=== PATIENT | female | born 1935 | race Caucasian/White ===

== ENCOUNTER 2016-11-18 06:17 | Inpatient (IN) | payer MEDICARE ==
[~2016-11-18 06:17] MED LIST: Buffered Lidocaine 1% SYR 3ML* 3 ML/SYR SYRINGE INTRADERM ONE; Dexamethasone IV* 4 MG/ML 1 ML (4 MG) IV SLOW PU ONE; Famotidine IV* 10 MG/ML 2 ML (20 mg) IV ONE
[2016-11-18] MEDS ORDERED: Famotidine IV* 10 MG/ML 2 ML (20 mg) ONE (06:41)
[2016-11-18] MEDS ORDERED: ceFAZolin 2 GM PREMIX (*) 2 GM/50 ML BAG IVPB ONE (06:41)
[2016-11-18] MEDS ORDERED: Dexamethasone IV* 4 MG/ML 1 ML (4 MG) ONE (06:41)
[2016-11-18] MEDS ORDERED: Lidocain 1% EPI 1:100,000 * 30 ML MDV ONE (06:58)
[2016-11-18] MEDS ORDERED: Bacitracin IV* 50,000 UNITS INJ ONE (06:59)
[2016-11-18] MEDS ORDERED: Thrombin 5,000 UNITS* 1 APPLIC KIT - topical use - TOPICAL ONE (06:59)
[2016-11-18] MEDS ORDERED: Bupivacaine 0.25% EPI 200,000* 30 ML SDV ONE (07:00)
[2016-11-18] MEDS ORDERED: Rocuronium* 10 MG/ML VIAL ONE (07:42)
[2016-11-18] MEDS ORDERED: Midazolam* 1 MG/ML 2 ML VIAL (2 MG) ONE (07:42)
[2016-11-18] MEDS ORDERED: Lidocaine 2% PF * 5 ML VIAL ONE (07:42)
[2016-11-18] MEDS ORDERED: Propofol* 10 MG/ML 20 ML BTL IV PUSH ONE (07:42)
[2016-11-18] MEDS ORDERED: fentaNYL* 50 MCG/ML 5 ML VIAL (250 MCG VIAL) ONE (07:42)
[2016-11-18] MEDS ORDERED: EPHEDrine (Pressors)* 50 MG/ML VIAL ONE (08:01)
[2016-11-18] MEDS ORDERED: Phenylephrine IV* 40 MCG/ML 10 ML SYRINGE ONE (08:27)
[2016-11-18] MEDS ORDERED: Phenylephrine INJ* 10 MG/ML 1 ML VIAL (10 MG) ONE (08:45)
[2016-11-18] MEDS ORDERED: PROCHLORPERAZINE INJ 5 MG/ML 2 ML VIAL IV PRN (08:53)
[2016-11-18] MEDS ORDERED: oxyCODONE/Acetamin 5/325 MG* TAB PO PRN (08:53)
[2016-11-18] MEDS ORDERED: Ondansetron INJ* 2 MG/ML VIAL ONE (09:45)
[2016-11-18] MEDS ORDERED: Magnesium Hydroxide LIQ* 30 ML UDC PO PRN (10:11)
[2016-11-18] MEDS ORDERED: Ondansetron INJ* 2 MG/ML VIAL IV PRN (10:11)
[2016-11-18] MEDS ORDERED: fentaNYL* 50 MCG/ML 2 ML VIAL (100 MCG VIAL) ONE ×2 (10:52→11:35)
[2016-11-18] MEDS: fentaNYL* 50 MCG/ML 2 ML VIAL (100 MCG VIAL) IV PRN ×3 (10:53→11:36)
[2016-11-18] MEDS ORDERED: HYDROmorphone PCA* 20 MG/20 ML PCA.SYRING PCA SCH (11:00)
--- NOTE | 2016-11-18 12:52 | RAD ---
INDICATION: Lumbar spine surgery COMPARISON: Preoperative radiograph dated October 13, 2016 TECHNIQUE: A single crosstable lateral view was taken intraoperatively. FINDINGS: Single crosstable view depicts 3 surgical clamps overlying the L4-S2 level. There is a surgical device with the tip at level with the superior endplate of S1. . IMPRESSION: Crosstable intraoperative findings as described above.
[2016-11-18] MEDS: Polyethylene Glycol 3350* 17 GM PACKET PO SCH (13:35)
[2016-11-18] MEDS: Omeprazole CAP* 20 MG PO SCH (20:19)
[2016-11-18] MEDS: celeCOXIB CAP* 200 MG PO SCH (20:19)
--- NOTE | 2016-11-19 07:49 | PN ---
Progress Note - Progress Note SOAP: Subjective: [This is an 81 year old female s/p decompressive lumbar laminectomy L2-3, L3-4, L4-5 and L5-S1, POD#1. She is feeling well this morning and complains of incisional back pain. No numbness, tingling, weakness or pain in the bilateral lower extremities. She has been up out of bed with assistance. She is eating and drinking without difficulty. ] Objective: [ Vital Signs: Temp Pulse Resp BP Pulse Ox 97.9 F 64 18 121/48 97 11/19/16 03:57 11/19/16 06:37 11/19/16 06:00 11/19/16 03:57 11/19/16 06:37 General: Alert and oriented. No distress Neuro: Motor and sensory intact. Extremities: Full ROM throughout PATRICIA drain output 11/18/16 11/18/16 11/18/16 10:33 11:45 13:49 Output, PATRICIA #1 40 60 75 11/18/16 11/18/16 11/18/16 18:21 20:21 22:55 Output, PATRICIA #1 100 25 25 11/19/16 11/19/16 11/19/16 00:47 02:05 05:23 Output, PATRICIA #1 20 10 15 ] Assessment: [This patient is making a satisfactory recovery at this time. PATRICIA drain continues to collect significant volume and will require further monitoring.] Plan: [1. Discontinue magaña catheter. 2. 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 3. Encourage ambulation. 4. Admit to inpatient for further monitoring.]
[2016-11-19] MEDS: BUPROPION PO SCH (08:51)
[2016-11-19] MEDS: Polyethylene Glycol 3350* 17 GM PACKET PO SCH (08:52)
[2016-11-19] MEDS: celeCOXIB CAP* 200 MG PO SCH ×2 (08:53→20:08)
[2016-11-19] MEDS: Cholecalciferol TAB* 1000 UNITS PO SCH (08:54)
[2016-11-19] MEDS: Multivitamins/Minerals TAB PO SCH (08:54)
[2016-11-19] MEDS: DULoxetine DR CAP* 60 MG CAP.DR PO SCH (08:54)
[2016-11-19] MEDS: Metoprolol Succinate XL TAB* 25 MG PO SCH (08:54)
[2016-11-19] MEDS: Omeprazole CAP* 20 MG PO SCH ×2 (08:54→20:08)
[2016-11-19] MEDS: HYDROmorphone TAB* 2 MG PO PRN ×3 (08:59→20:08)
[2016-11-19] MEDS ORDERED: Polyethylene Glycol 3350* 17 GM PACKET PO SCH (09:00)
[2016-11-19] MEDS: Carisoprodol TAB* 350 MG PO PRN ×2 (10:19→23:09)
[2016-11-19] MEDS: BUPROPION 300 MG PO SCH (11:59)
[2016-11-19] MEDS: BUPROPION 100 MG PO SCH (11:59)
[2016-11-19] MEDS ORDERED: HYDROmorphone INJ* 2 MG/ML CARPUJECT SYRINGE ONE (12:47)
[2016-11-19] MEDS: HYDROmorphone INJ* 2 MG/ML CARPUJECT SYRINGE IV SLOW PU PRN ×2 (17:41→22:03)
[2016-11-20] MEDS: HYDROmorphone TAB* 2 MG PO PRN ×4 (00:45→20:57)
[2016-11-20] MEDS: HYDROmorphone INJ* 2 MG/ML CARPUJECT SYRINGE IV SLOW PU PRN ×3 (04:02→15:02)
[2016-11-20] MEDS: BUPROPION 300 MG PO SCH (09:06)
[2016-11-20] MEDS: BUPROPION 100 MG PO SCH (09:07)
[2016-11-20] MEDS: Polyethylene Glycol 3350* 17 GM PACKET PO SCH (09:08)
[2016-11-20] MEDS: Cholecalciferol TAB* 1000 UNITS PO SCH (09:09)
[2016-11-20] MEDS: Omeprazole CAP* 20 MG PO SCH ×2 (09:09→20:57)
[2016-11-20] MEDS: Multivitamins/Minerals TAB PO SCH (09:09)
[2016-11-20] MEDS: Metoprolol Succinate XL TAB* 25 MG PO SCH (09:09)
[2016-11-20] MEDS: DULoxetine DR CAP* 60 MG CAP.DR PO SCH (09:09)
[2016-11-20] MEDS: celeCOXIB CAP* 200 MG PO SCH ×2 (09:09→20:57)
[2016-11-20] MEDS: BUPROPION PO SCH (09:12)
[2016-11-20] MEDS ORDERED: Calcium Carbonate CHEW TAB* 500 MG (TUMS) PO PRN (15:35)
[2016-11-20] MEDS ORDERED: fentaNYL PATCH 50 MCG/HR TRANSDERM SCH (16:00)
[2016-11-20] MEDS: fentaNYL Patch Check Q Shift 1 NOTE SCH (18:43)
[2016-11-21] MEDS: fentaNYL Patch Check Q Shift 1 NOTE SCH (06:45)
[2016-11-21] MEDS: HYDROmorphone TAB* 2 MG PO PRN (07:26)
[2016-11-21 07:32] VITALS: BP 130/56
--- NOTE | 2016-11-21 07:46 | PN ---
Progress Note - Progress Note SOAP: Subjective: []POD # 3 Much better Complains of incisional pain Has ambulated,voiding well Objective: []Neuro intact Dressing dry Assessment: [] Satis post op course Plan: [] D/C today D/C instructions given
[2016-11-21] MEDS: Cholecalciferol TAB* 1000 UNITS PO SCH (08:23)
[2016-11-21] MEDS: Multivitamins/Minerals TAB PO SCH (08:24)
[2016-11-21] MEDS: Metoprolol Succinate XL TAB* 25 MG PO SCH (08:24)
[2016-11-21] MEDS: Omeprazole CAP* 20 MG PO SCH (08:24)
[2016-11-21] MEDS: DULoxetine DR CAP* 60 MG CAP.DR PO SCH (08:24)
[2016-11-21] MEDS: celeCOXIB CAP* 200 MG PO SCH (08:24)
[2016-11-21] MEDS: BUPROPION 100 MG PO SCH (08:24)
[2016-11-21] MEDS: BUPROPION 300 MG PO SCH (08:24)
[2016-11-21] MEDS: BUPROPION PO SCH (08:25)
[2016-11-21] MEDS: Polyethylene Glycol 3350* 17 GM PACKET PO SCH (08:25)
--- NOTE | 2016-11-21 23:14 | OP ---
OPERATIVE REPORT: DATE OF OPERATION: 11/18/16 DATE OF : 33 SURGEON: Patel Huang MD OUTSIDE SALES ACCOUNT REPRESENTATIVE: WALESKA Wong ANESTHESIA: General. PRE-OP DIAGNOSIS: Lumbar spinal stenosis, L2-3, L3-4, L4-5, L5-S1. POST-OP DIAGNOSIS: Lumbar spinal stenosis, L2-3, L3-4, L4-5, L5-S1. OPERATIVE PROCEDURE: Decompressive lumbar laminectomy, L2-3, L3-4, L4-5, L5-S1. DESCRIPTION OF PROCEDURE: After satisfactory general anesthesia was obtained, the patient was place d on the operating table in the prone position with the chest supported on the Larry frame and the back slightly flexed. The lumbar region was then clipped, prepped and draped in a sterile manner for lumbar laminectomy and a skin incision was outlined from L2 to the sacrum. This incision was infilt rated with 1% Xylocaine with epinephrine after which it was turned down sharply to the level of the lumbar fascia. The fascia was divided along the spinous process from L2 to sacrum bilaterally and th e paraspinal musculature was stripped away using the monopolar cautery and periosteal elevator. An intraoperative x-ray was obtained verifying localization of the L4-5 level after which a decompressi on was initially began at this level by removing the spinous process of L4 and L5 with a combination of the Nadine flour distributor and Leksell rongeurs. The Midas Gutierrez drill was then used to thin out the remaining portion of the base of the spinous process of L4 and inferior aspect of the lamina. There was noted to be marked facet hypertrophy as well as ligamentum thickening contributing to stenosis at this level. Utilizing Kerrison rongeurs, a decompression was carried superiorly until the attach ment of the ligamentum flavum was taken down. Ligamentum flavum was then removed with the Kerrison. The medial aspect of the facet complex was thinned out and generous foraminotomy was carried out u ntil both L5 nerve roots could be seen to be free in their course. Attention was then directed to t he L3-4 level where similar changes were noted. The decompression at this level was carried inferio rly until both L4 nerve roots were noted to be free in their course. A decompression was done at L5 - S1 level where the findings were noted to be not as severe as the L3-4 or L4-5 levels, but there w as a component of facet hypertrophy contributing to nerve root compression particularly at the level of the S1 pedicles. At the conclusion of this decompression, the S1 nerve roots were noted to free in their course. The most significant level was at L2-L3 where the spinous processes of L2 and L3 were actually had grown together. This was decompressed as well with the findings again being signi ficant for bony hypertrophy and ligamentum thickening. At the conclusion of the decompression at th is level, both the L3 nerve roots were noted to be free. Hemostasis was obtained with temporary Gel foam and after assuring adequate hemostasis, the wound was thoroughly irrigated after which Gelfoam was placed in the bony defects at all 4 levels. A drain was placed in the epidural space and tunnel ed out toward the left side. The fascia was then reapproximated with 0 Vicryl suture. The subcutan eous tissue was closed with 3-0 Vicryl suture and the skin closed with skin clips. Estimated blood loss was 200 cc and the final sponge, padding, and needle counts were correct. The patient was take n to the recovery room extubated and in stable condition. [id number]/[facility] #: [id number]
--- NOTE | 2016-11-26 02:04 | DS ---
DISCHARGE SUMMARY: DATE OF ADMISSION: 11/18/16 DATE OF DISCHARGE: 11/21/16 DISCHARGE DIAGNOSES: 1. Lumbar spinal stenosis. 2. Hypertension. 3. Gastroesophageal reflux disease. 4. History of thrombosis. SPECIAL PROCEDURES: Decompressive lumbar laminectomy at L2-3, L3-4, and L4-5, and L5-S1. HOSPITAL COURSE: This 81-year-old female was seen in the office with signs and symptoms of lumbar s heydi stenosis that has been present for several years. She has failed to improve with conservative treatment and was admitted at this time for elective surgical intervention. On the day of admissio n, she was taken to surgery where under general anesthesia, a decompressive lumbar laminectomy at L2 -3, L3-4, L4-5, and L5-S1, operation was carried out. Postoperatively, she was feeling well. Pain w as managed with p.o. and IV pain medications. She is ambulating independently. She is eating and d rinking without difficulty. She required further observation for pain management in addition to con tinued wound drain output. The third postoperative day, she was discharged home to the care of her family. Discharge instructions including wound care and activity level were discussed with the linda ent and provided. She will be seen in the office in approximately 7 to 10 days for followup and sta ple removal. DISCHARGE MEDICATIONS: Dilaudid 2 mg 1 tab by mouth every 4 hours as needed for pain. WALESKA FERREIRA [id number]/[facility] #: [id number]
== END 2016-11-21 10:20 | disposition home or self-care (01) | DRG 516 ==
LOC: OR 06:17 → SSU 07:50 → OBSVTOIN 11-19 07:50
PROVIDERS: ADMIT Neurological Surgery; ATTEND Neurological Surgery
PROC: 01NB0ZZ Release Lumbar Nerve, Open Approach (ICD-10-PCS; principal; 2016-11-18 07:45)
DX: M48.06 Spinal stenosis, lumbar region (principal); F33.1 Major depressive disorder, recurrent, moderate; I10 Essential (primary) hypertension; K21.9 Gastro-esophageal reflux disease without esophagitis; M16.10 Unilateral primary osteoarthritis, unspecified hip; M19.019 Primary osteoarthritis, unspecified shoulder; M24.549 Contracture, unspecified hand; M47.812 Spondylosis without myelopathy or radiculopathy, cervical region; Z79.01 Long term (current) use of anticoagulants; Z79.891 Long term (current) use of opiate analgesic; Z79.899 Other long term (current) drug therapy; Z88.6 Allergy status to analgesic agent; Z88.8 Allergy status to other drugs, medicaments and biological substances; Z86.711 Personal history of pulmonary embolism; Z87.891 Personal history of nicotine dependence; Z83.3 Family history of diabetes mellitus; Z80.52 Family history of malignant neoplasm of bladder; Z82.49 Family history of ischemic heart disease and other diseases of the circulatory system; Z81.1 Family history of alcohol abuse and dependence
CPT/HCPCS: 72100; A9270-GY; G0378; J0690; J1100; J1170; J2250; J2405; J2704; J3010

== ENCOUNTER 2017-05-21 06:19 | Emergency (ER) | payer MEDICARE ==
[2017-05-21] MEDS ORDERED: HYDROmorphone* 1 MG/ML 1 ML SYR IV ONE (06:50)
[2017-05-21] MEDS ORDERED: Ondansetron INJ* 2 MG/ML VIAL IV ONE (06:50)
[2017-05-21] MEDS ORDERED: NS 0.9% 1000 ML* 1,000 ML IV ONE (06:50)
[2017-05-21 07:16] LABS: Hematocrit 41 % (35-47); Hemoglobin 13.1 g/dl (12.0-16.0); Mean Corpuscular HGB Conc 32 g/dl (31-36); Mean Corpuscular Hemoglobin 27 pg (27-31); Mean Corpuscular Volume 84 fL (80-97); Mean Platelet Volume 8 um3 (7.4-10.4); Red Blood Count 4.92 10^6/ul (4.0-5.4); Red Cell Distribution Width 18 % (10.5-15)
[2017-05-21 07:29] LABS: ALT 10 U/L (7-52); AST 16 U/L (13-39); Albumin 4.3 g/dL (3.2-5.2); Alkaline Phosphatase 53 U/L (34-104); Anion Gap 9 mmol/L (2-11); BUN/Creatinine Ratio 23.3 (8-20); Blood Urea Nitrogen 17 mg/dL (6-24); C Reactive Protein 1.95 mg/L (< 5.00); CO2 Carbon Dioxide 25 mmol/L (22-32); Chloride 102 mmol/L (101-111); EGFR African American 98.2 (>60); EGFR Non-African American 76.3 (>60); Glucose 124 mg/dL (70-100); Lipase < 10 U/L (11.0-82.0); Potassium 3.6 mmol/L (3.5-5.0); Sodium 136 mmol/L (133-145); Total Protein 7.3 g/dL (6.4-8.9)
[2017-05-21] MEDS ORDERED: PROCHLORPERAZINE INJ 5 MG/ML 2 ML VIAL IV ONE (07:34)
[2017-05-21 08:15] LABS: Urine Bilirubin Negative (Negative); Urine Glucose Negative (Negative); Urine Nitrite Negative (Negative)
[2017-05-21 10:20] VITALS: BP 130/64
--- NOTE | 2017-05-21 18:51 | ED ---
Nakita Avina Rebecca, scribed for Steven Garcia MD on 05/21/17 at 0734 . Headache - HPI Summary HPI Summary: Pt is an 81 y/o F who presents to ED c/o JENNINGS since approximately 1500 yesterday. JENNINGS is in the left frontal region and is currently severe, ranked 7-8/10 which is improved from how it was previously. Sx aggravated by movement and alleviated by nothing. Additionally c/o slight abd pain and N/V with vomiting beginning this morning. reports emesis was dark brown. Denies ear pain and sore throat. family notes she received 2 cortisone injections yesterday. Prior similar episodes of HAs last year, treated with IV Dilaudid and a less severe episode of JENNINGS without vomiting last week. Unknown last Head CT. - History Of Current Complaint Chief Complaint: EDHeadache Stated Complaint: HEADACHE/VOMITING//NAUSEA Time Seen by Provider: 05/21/17 07:21 Hx Obtained From: Patient Onset/Duration: Started hours ago - Last night, Still Present Initially Headache Was: Initial Pain Scale(0-10)= - 9/10, Severe Currently Pain Is: Current Pain Scale(0-10)= - 7-8/10, Severe Location of Headache: Frontal - Left Aggravating Factor: Other - Movement Allevating Factors: Nothing Associated Signs And Symptoms: Nausea, Vomiting, Other (Noted In Comments) - abd pain - Allergies/Home Medications Allergies/Adverse Reactions: Allergies Allergy/AdvReac Type Severity Reaction Status Date / Time Hydrochlorothiazide Allergy Rash Verified 05/21/17 06:39 Morphine AdvReac Severe SEVERE Verified 05/21/17 06:39 HEADACHE Codeine AdvReac Mild Dizziness Verified 05/21/17 06:39 Home Medications: Home Medications fentaNYL PATCH 12 MCG/HR * 12.5 mcg TRANSDERM Q72HR 05/21/17 [History Confirmed 05/21/17] PMH/Surg Hx/FS Hx/Imm Hx Endocrine/Hematology History: Denies: Hx Diabetes Cardiovascular History: Reports: Hx Hypertension - ON MEDS, Hx Rheumatic Fever - A CHILD, Other Cardiovascular Problems/Disorders - Hx HTN Denies: Hx Congestive Heart Failure, Hx Pacemaker/ICD, Hx Peripheral Vascular Disease Respiratory History: Reports: Hx Pulmonary Embolism - HX DVT, 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, Other Respiratory Problems/Disorders - PEs Jun 2013 Denies: Hx Asthma GI History: Reports: Hx Gastroesophageal Reflux Disease, Other GI Disorders - diarrhea History: Reports: Other Problems/Disorders - FREQ BLADDER INFECTIONS Denies: Hx Renal Disease Musculoskeletal History: Reports: Hx Arthritis - ALL OVER, Hx Back Problems, Hx Bursitis, Hx Osteoporosis, Other Musculoskeletal History - left hip replacement , right hip replacement Sensory History: Reports: Hx Cataracts - [place], Hx Contacts or Glasses - GLASSES, Hx Hearing Aid - [place] Denies: Hx Glaucoma Opthamlomology History: Reports: Hx Cataracts - [place], Hx Contacts or Glasses - GLASSES Denies: Hx Glaucoma Neurological History: Reports: Hx Headaches, Hx Migraine - 2016 A TEEN AND 2016 AND 12/2015, OK NOW, Hx Nerve Disease, Other Neuro Impairments/Disorders - sciatica. PAIN CLINIC PT Psychiatric History: Reports: Hx Anxiety - SEES THERAPY, Hx Depression - THERAPY Denies: Hx Attention Deficit Hyperactivity Disorder, Hx Eating Disorder, Hx Panic Disorder, Hx Post Traumatic Stress Disorder, Hx Inpatient Treatment, Hx Community Mental Health Tx, Hx Schizophrenia, Hx Bipolar Disorder, Hx Suicide Attempt, Hx of Violent Episodes Against Others, Hx Substance Abuse, Other Psychiatric Issues/Disorders - Cancer History Cancer Type, Location and Year: pre-cancerous skin lesions removed Hx Chemotherapy: No Hx Radiation Therapy: No - Surgical History Surgery Procedure, Year, and Place: TONSILS CHILD. AGE 19 APPENDECTOMY- [place]. 1997 BREAST REDUCTION- [place]. 1998 LEFT TOTAL HIP REPLACEMENT- [place]. 013 RIGHT TOTAL HIP REPLACEMENT. 1993, [place]Y, [place]. ROX[place] CARPAL TUNNEL, 2005. ROXANA CATARACTS, 2009, [place]. LEFT SHOULDER RELACEMENT, 2012, [place]. LEFT HAND, 2015, [place] 2003 BILAT CATARACTS- [place]. left shoulder replacement . 2003 RIGHT BUNION- [place]. 2005 BILAT CARPAL TUNNEL RELEASE-[place]. TRIGGER FINGER RELEASE LT HAND Hx Anesthesia Reactions: No - Immunization History Date of Tetanus Vaccine: up to date Date of Influenza Vaccine: up to date Infectious Disease History: No Infectious Disease History: Denies: Hx Clostridium Difficile, Hx Hepatitis, Hx Human Immunodeficiency Virus (HIV), Hx of Known/Suspected MRSA, Hx Shingles, Hx Tuberculosis, Hx Known/ Suspected VRE, Hx Known/Suspected VRSA, History Other Infectious Disease, Traveled Outside the [place] in Last 30 Days - Family History Known Family History: Positive: Hypertension, Other - bladder CA - Social History Alcohol Use: None Alcohol Amount: 3 glasses wine/day Substance Use Type: Reports: None Smoking Status (MU): Former Smoker Type: Cigarettes Amount Used/How Often: 2 PACKS A DAY Have You Smoked in the Last Year: No Review of Systems Negative: Sore Throat, Ear Ache Positive: Abdominal Pain - mild, Vomiting, Nausea Positive: Headache - L frontal All Other Systems Reviewed And Are Negative: Yes Physical Exam - Summary Physical Exam Summary: VITAL SIGNS: Reviewed. GENERAL: ~Patient is a well-developed and nourished female who is lying comfortable in the stretcher. ~Patient is not in any acute respiratory distress. HEAD AND FACE: No signs of trauma. ~No ecchymosis, hematomas or skull depressions. No sinus tenderness. EYES: PERRLA, EOMI x 2, No injected conjunctiva, no nystagmus. EARS: Hearing grossly intact. Ear canals and tympanic membranes are within normal limits. MOUTH: Oropharynx within normal limits. NECK: Supple, trachea is midline, no adenopathy, no JVD, no carotid bruit, no c- spine tenderness, neck with full ROM. CHEST: Symmetric, no tenderness at palpation LUNGS: Clear to auscultation bilaterally. No wheezing or crackles. CVS: Regular rate and rhythm, S1 and S2 present, no murmurs or gallops appreciated. ABDOMEN: Soft, non-tender. No signs of distention. No rebound no guarding, and no masses palpated. Bowel sounds are normal. EXTREMITIES: FROM in all major joints, no edema, no cyanosis or clubbing. NEURO: Alert and oriented x 3. No acute neurological deficits. Speech is normal and follows commands. SKIN: Dry and warm Triage Information Reviewed: Yes Vital Signs On Initial Exam: Initial Vitals Temp Pulse Resp BP Pulse Ox 97.3 F 75 18 191/75 97 05/21/17 06:29 05/21/17 06:29 05/21/17 06:29 05/21/17 06:29 05/21/17 06:29 Vital Signs Reviewed: Yes - Caryl Coma Scale Coma Scale Total: 15 Diagnostics - Vital Signs Vital Signs Temp Pulse Resp BP Pulse Ox 05/21/17 07:14 16 05/21/17 06:34 97.3 F 75 18 191/75 97 05/21/17 06:29 97.3 F 75 18 191/75 97 - Laboratory Lab Results: Lab Results 05/21/17 Range/Units 07:00 WBC 11.0 H (3.5-10.8) 10^3/ul RBC 4.92 (4.0-5.4) 10^6/ul Hgb 13.1 (12.0-16.0) g/dl Hct 41 (35-47) % MCV 84 (80-97) fL MCH 27 (27-31) pg MCHC 32 (31-36) g/dl RDW 18 H (10.5-15) % Plt Count 204 (150-450) 10^3/ul MPV 8 (7.4-10.4) um3 Neut % (Auto) 78.8 (38-83) % Lymph % (Auto) 15.1 L (25-47) % [place] % (Auto) 5.6 (1-9) % Eos % (Auto) 0 (0-6) % Baso % (Auto) 0.5 (0-2) % Absolute Neuts (auto) 8.6 H (1.5-7.7) 10^3/ul Absolute Lymphs (auto) 1.7 (1.0-4.8) 10^3/ul Absolute Monos (auto) 0.6 (0-0.8) 10^3/ul Absolute Eos (auto) 0 (0-0.6) 10^3/ul Absolute Basos (auto) 0.1 (0-0.2) 10^3/ul Absolute Nucleated RBC 0 10^3/ul Nucleated RBC % 0 Result Diagrams: 05/21/17 07:00 05/21/17 07:00 Lab Statement: Any lab studies that have been ordered have been reviewed, and results considered in the medical decision making process. Re-Evaluation - Re-Evaluation First Eval Re-Evaluation Time: 10:04 Change: Improved Comment: Pain is significantly better, now 0/10. Headache Course/Dx - Course Assessment/Plan: Pt is an 81 y/o F who presents to ED c/o JENNINGS since approximately 1500 yesterday. JENNINGS is in the left frontal region and is currently severe, ranked 7-8/10 which is improved from how it was previously. Sx aggravated by movement and alleviated by nothing. Additionally c/o slight abd pain and N/V with vomiting beginning this morning. reports emesis was dark brown. Denies ear pain and sore throat. family notes she received 2 cortisone injections yesterday. Prior similar episodes of HAs last year, treated with IV Dilaudid and a less severe episode of JENNINGS without vomiting last week. Unknown last Head CT. Test results w/o any significant abnormalities except WBC of 11.0, glucose of 124. UA negative for UTI. Before I saw the pt, the pt was given by Dr. Chairez IV fluids, Zofran and Dilaudid. By the time of examination, most of her sx had resolved. Pt reports that she suffers of migraine HAs and this JENNINGS is similar to usual migraine JENNINGS. She was observed for approx. 3 hours in the ED and all her sx resolved. At this point, the pain is 0/ 10. She requested to be D/C to home. I gave an Rx for Zofran and she will be D/ C to home with follow up with PCP. The pt is afebrile and has no neck pain and no photophobia, therefore the pt has low suspicion for meningitis. Pt is hemodynamically stable and A&Ox3. I discussed all the findings and test results with the patient. Patient was instructed to return to the emergency room immediately if any of the symptoms return or worsens. Plan of care was discussed with the patient and understands and agrees. All questions were answered at patient satisfaction. There were no further complaints or concerns. - Diagnoses Differential Diagnosis/HQI/PQRI: Migraine, Sinus Headache, Tension Headache Provider Diagnoses: Migraine headache Discharge - Discharge Plan Condition: Stable Disposition: HOME Prescriptions: Ondansetron ODT TAB* [Zofran 4 MG Odt TAB*] 4 mg PO Q6H PRN #10 tab.odt PRN Reason: Vomiting Patient Education Materials: Migraine Headache (ED) Referrals: Raymond Cooper MD [Primary Care Provider] - 3 Days The documentation as recorded by the Nakita singletary Rebecca accurately reflects the service I personally performed and the decisions made by me, Steven Garcia MD.
== END 2017-05-21 10:19 | disposition home or self-care (01) ==
LOC: ED 06:19
DX: G43.909 Migraine, unspecified, not intractable, without status migrainosus (principal); R11.2 Nausea with vomiting, unspecified; R10.9 Unspecified abdominal pain; Z87.891 Personal history of nicotine dependence
CPT/HCPCS: 36415; 80053; 81003; 83690; 85025; 85610; 85730; 86140; 96374; 96375; 99282; J0780; J1170; J2405

== ENCOUNTER 2018-03-19 13:29 | Emergency (ER) | payer MEDICARE ==
[2018-03-19 15:38] LABS: ABS Basophils 0 10^3/ul (0-0.2); ABS Eosinophils 0.1 10^3/ul (0-0.6); ABS Lymphocytes 1.7 10^3/ul (1.0-4.8); ABS Monocytes 0.7 10^3/ul (0-0.8); ABS Neutrophils 4.7 10^3/ul (1.5-7.7); ABS Nucleated RBC 0 10^3/ul; Hematocrit 44 % (35-47); Hemoglobin 14.8 g/dl (12.0-16.0); Mean Corpuscular HGB Conc 34 g/dl (31-36); Mean Corpuscular Hemoglobin 30 pg (27-31); Mean Corpuscular Volume 90 fL (80-97); Mean Platelet Volume 7.5 um3 (7.4-10.4); Nucleated Red Blood Cells % 0.1; Platelet Count 262 10^3/ul (150-450); Red Blood Count 4.89 10^6/ul (4.00-5.40); Red Cell Distribution Width 14 % (10.5-15); White Blood Count 7.2 10^3/ul (3.5-10.8)
[2018-03-19] MEDS ORDERED: Ketorolac INJ* 30 MG/ML 1 ML VIAL IV PUSH ONE (15:39)
[2018-03-19 16:04] LABS: EGFR Non-African American 60.6 (>60)
[2018-03-19] MEDS ORDERED: diPHENhydraMINE IV* 50 MG/ML 1 ml VIAL (BENADRYL) IV ONE (16:45)
--- NOTE | 2018-03-19 16:47 | RAD ---
INDICATION: Right upper quadrant pain. COMPARISON: Comparison is made with a prior CT of the abdomen and pelvis from May 09, 2014. TECHNIQUE: Multiple real-time images of the right upper quadrant were obtained. FINDINGS: The gallbladder appear normal. No gallbladder wall thickening or pericholecystic fluid is present. No intra or extrahepatic ductal distention is present. The common bile duct measured 0.2 cm in diameter. The liver is normal in size. There are several echogenic foci which correlate with calcifications on the prior CT study. No other focal abnormalities are seen. The pancreas is obscured by overlying bowel gas. The right kidney is normal in size without evidence for hydronephrosis. IMPRESSION: 1. NORMAL EXAMINATION OF THE GALLBLADDER. 2. SCATTERED CALCIFICATIONS WITHIN THE LIVER SUGGESTIVE OF OLD GRANULOMATOUS DISEASE.
--- NOTE | 2018-03-19 17:12 | RAD ---
INDICATION: Right upper quadrant pain. COMPARISON: Correlation is made with a prior chest x-ray study from November 11, 2016. TECHNIQUE: Dual-energy PA and lateral views of the chest were obtained. FINDINGS: The heart is within normal limits in size. Mediastinal and hilar contours appear within normal limits. There are calcified mediastinal and left hilar lymph nodes most consistent with old granulomatous disease. The lungs are hyperinflated and clear. No pleural effusion is seen. No free intraperitoneal air is seen. The patient is status post left shoulder arthroplasty. IMPRESSION: FINDINGS CONSISTENT WITH COPD AND OLD GRANULOMATOUS DISEASE, NO EVIDENCE FOR ACUTE FINDING.
--- NOTE | 2018-03-19 17:15 | RAD ---
INDICATION: Right upper quadrant pain. COMPARISON: Comparison is made with a prior CT of the abdomen and pelvis from May 09, 2014. TECHNIQUE: Frontal supine films of the abdomen were obtained. FINDINGS: The small bowel and colon appear nondistended. There are multiple round and oval shaped calcific densities which project over the right mid abdomen consistent with either pills or foreign bodies. The patient is status post total bilateral hip replacement surgeries. IMPRESSION: 1. NO EVIDENCE FOR OBSTRUCTION. 2. CALCIFIC DENSITIES WHICH PROJECT OVER THE RIGHT MIDABDOMEN CONSISTENT WITH FOREIGN BODIES OR PILLS.
--- NOTE | 2018-03-19 18:07 | ED ---
Go Avina Stephanie, scribed for Herve Medina MD on 03/19/18 at 1537 . Abdominal Pain/Female - HPI Summary HPI Summary: The pt is an 82 y/o F presenting to the ED with c/o RLQ abd pain that began this morning at 08:00. She denies fever, N/V/D, and CP. The pt states her pain started as a stabbing pain to her mid abdomen but has travelled to her R side. Per daughter, the pt has had a series of UTIs in the past. Her last BM was yesterday. - History of Current Complaint Chief Complaint: EDAbdPain Stated Complaint: PAIN IN ABDOMEN Time Seen by Provider: 03/19/18 15:25 Hx Obtained From: Patient ?: No Onset/Duration: Gradual Onset Timing: Intermittent Episode Lasting Severity Currently: Moderate Pain Intensity: 7 Pain Scale Used: 0-10 Numeric Location: Discrete At: RUQ, Discrete At: RLQ Radiates: No Aggravating Factor(s): Nothing Alleviating Factor(s): Nothing Associated Signs and Symptoms: Negative: Chest Pain, Nausea, Vomiting, Diarrhea Allergies/Adverse Reactions: Allergies Allergy/AdvReac Type Severity Reaction Status Date / Time hydrochlorothiazide Allergy Rash Verified 02/24/18 15:00 morphine AdvReac Severe Headache Verified 02/24/18 15:00 codeine AdvReac Mild Dizziness Verified 02/24/18 15:00 Home Medications: Home Medications Acetaminophen TAB* [Tylenol TAB*] 325 mg PO Q4H PRN 03/19/18 [History Confirmed 03/19/18] BuPROPion XL* [Bupropion XL*] 350 mg PO DAILY 03/19/18 [History Confirmed ] Calcium Carbonate [Antacid] 500 mg PO QID PRN 03/19/18 [History Confirmed ] Carboxymethylcellulose Sodium [Refresh Tears] 15 ml BOTH EYES DAILY PRN [History Confirmed 03/19/18] Carisoprodol TAB* [Soma TAB*] 350 mg PO Q6H PRN 03/19/18 [History Confirmed ] Cholecalciferol TAB* [Vitamin D TAB*] 2,000 units PO DAILY 03/19/18 [History Confirmed 03/19/18] DULoxetine DR CAP* [Cymbalta CAP*] 60 mg PO DAILY 03/19/18 [History Confirmed ] Hydrocortisone [Proctozone-Hc] 2.5 % TOPICAL DAILY PRN 03/19/18 [History Confirmed 03/19/18] Hydromorphone HCl [Hydromorphone ER] 32 mg PO DAILY 03/19/18 [History Confirmed 03/19/18] Multivitamins/Minerals TAB* [Theragran/minerals TAB*] 1 tab PO DAILY 03/19/18 [ History Confirmed 03/19/18] Omeprazole CAP* [Prilosec CAP* 20 MG] 20 mg PO DAILY 03/19/18 [History Confirmed 03/19/18] Polyethylene Glycol 3350* [Miralax*] 17 gm PO DAILY 03/19/18 [History Confirmed 03/19/18] Rivaroxaban TAB(*) [Xarelto 20 mg] 20 mg PO BEDTIME 03/19/18 [History Confirmed 03/19/18] Triazolam TAB* [Halcion TAB*] 0.25 mg PO BEDTIME PRN 03/19/18 [History Confirmed 03/19/18] celeCOXIB CAP* [Celebrex CAP*] 200 mg PO BID 03/19/18 [History Confirmed ] PMH/Surg Hx/FS Hx/Imm Hx Endocrine/Hematology History: Denies: Hx Diabetes Cardiovascular History: Reports: Hx Hypertension - ON MEDS, Hx Rheumatic Fever - A CHILD, Other Cardiovascular Problems/Disorders - Hx HTN Denies: Hx Congestive Heart Failure, Hx Pacemaker/ICD, Hx Peripheral Vascular Disease Respiratory History: Reports: Hx Pulmonary Embolism - HX DVT, 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, Other Respiratory Problems/Disorders - PEs Jun 2013 Denies: Hx Asthma GI History: Reports: Hx Gastroesophageal Reflux Disease, Other GI Disorders - diarrhea History: Reports: Other Problems/Disorders - FREQ BLADDER INFECTIONS Denies: Hx Renal Disease Musculoskeletal History: Reports: Hx Arthritis - ALL OVER, Hx Back Problems, Hx Bursitis, Hx Osteoporosis, Other Musculoskeletal History - left hip replacement , right hip replacement Sensory History: Reports: Hx Cataracts - [facility], Hx Contacts or Glasses - GLASSES, Hx Hearing Aid - [place] Denies: Hx Glaucoma Opthamlomology History: Reports: Hx Cataracts - [place], Hx Contacts or Glasses - GLASSES Denies: Hx Glaucoma Neurological History: Reports: Hx Headaches, Hx Migraine - 2016 A TEEN AND 2016 AND 12/2015, OK NOW, Hx Nerve Disease, Other Neuro Impairments/Disorders - sciatica. PAIN CLINIC PT Psychiatric History: Reports: Hx Anxiety - SEES THERAPY, Hx Depression - THERAPY Denies: Hx Attention Deficit Hyperactivity Disorder, Hx Eating Disorder, Hx Panic Disorder, Hx Post Traumatic Stress Disorder, Hx Inpatient Treatment, Hx Community Mental Health Tx, Hx Schizophrenia, Hx Bipolar Disorder, Hx Suicide Attempt, Hx of Violent Episodes Against Others, Hx Substance Abuse, Other Psychiatric Issues/Disorders - Cancer History Cancer Type, Location and Year: pre-cancerous skin lesions removed Hx Chemotherapy: No Hx Radiation Therapy: No - Surgical History Surgery Procedure, Year, and Place: TONSILS CHILD. AGE 19 APPEN[place]CTOMY- [place]. [place] [facility] [place] [facility] [place] RIGHT TOTAL HIP REPLACEMENT. 1993, [place], [place]. [place] CARPAL TUNNEL, 2005. [place] CATARACTS, [place] [facility] [place], [place] [facility] [place] [facility] [place] [facility] [place] replacement . 2003 RIGHT BUNION- [place] 2005 BILAT CARPAL [place] [place] TRIGGER FINGER RELEASE LT HAND Hx Anesthesia Reactions: No - Immunization History Date of Tetanus Vaccine: up to date Date of Influenza Vaccine: up to date Infectious Disease History: No Infectious Disease History: Denies: Hx Clostridium Difficile, Hx Hepatitis, Hx Human Immunodeficiency Virus (HIV), Hx of Known/Suspected MRSA, Hx Shingles, Hx Tuberculosis, Hx Known/ Suspected VRE, Hx Known/Suspected VRSA, History Other Infectious Disease, Traveled Outside the in Last 30 Days - Family History Known Family History: Positive: Hypertension, Other - bladder CA - Social History Occupation: Retired Lives: With Family Alcohol Use: None Alcohol Amount: 3 glasses wine/day Hx Substance Use: No Substance Use Type: Reports: None Hx Tobacco Use: Yes Smoking Status (MU): Former Smoker Type: Cigarettes Amount Used/How Often: 2 PACKS A DAY Have You Smoked in the Last Year: No Review of Systems Negative: Fever Negative: Chest Pain Positive: Abdominal Pain. Negative: Vomiting, Diarrhea, Nausea Negative: Slurred Speech All Other Systems Reviewed And Are Negative: Yes Physical Exam - Summary Physical Exam Summary: Appearance: Well appearing, no pain distress Skin: warm, dry, reflects adequate perfusion Head/face: normal Eyes: EOMI, SUSHIL ENT: normal Neck: supple, non-tender Respiratory: CTA, breath sounds present Cardiovascular: RRR, pulses symmetrical Abdomen: moderate RUQ pain and R side abd pain without Murpheys sign, soft Bowel Sounds: present Musculoskeletal: normal, strength/ROM intact Neuro: normal, sensory motor intact, A&Ox3 Triage Information Reviewed: Yes Vital Signs On Initial Exam: Initial Vitals Temp Pulse Resp BP Pulse Ox 98.1 F 78 17 178/102 100 03/19/18 13:33 03/19/18 13:33 03/19/18 13:33 03/19/18 13:33 03/19/18 13:33 Vital Signs Reviewed: Yes Diagnostics - Vital Signs Vital Signs Temp Pulse Resp BP Pulse Ox 03/19/18 13:33 98.1 F 78 17 178/102 100 - Laboratory Lab Results: Lab Results 03/19/18 03/19/18 03/19/18 Range/Units 15:25 15:25 15:25 WBC 7.2 (3.5-10.8) 10^3/ul RBC 4.89 (4.00-5.40) 10^6/ul Hgb 14.8 (12.0-16.0) g/dl Hct 44 (35-47) % MCV 90 (80-97) fL MCH 30 (27-31) pg MCHC 34 (31-36) g/dl RDW 14 (10.5-15) % Plt Count 262 (150-450) 10^3/ul MPV 7.5 (7.4-10.4) um3 Neut % (Auto) 65.5 (38-83) % Lymph % (Auto) 23.0 L (25-47) % [place] % (Auto) 9.9 H (0-7) % Eos % (Auto) 1.0 (0-6) % Baso % (Auto) 0.6 (0-2) % Absolute Neuts (auto) 4.7 (1.5-7.7) 10^3/ul Absolute Lymphs (auto) 1.7 (1.0-4.8) 10^3/ul Absolute Monos (auto) 0.7 (0-0.8) 10^3/ul Absolute Eos (auto) 0.1 (0-0.6) 10^3/ul Absolute Basos (auto) 0 (0-0.2) 10^3/ul Absolute Nucleated RBC 0 10^3/ul Nucleated RBC % 0.1 Sodium 139 (135-145) mmol/L Potassium 3.6 (3.5-5.0) mmol/L Chloride 103 (101-111) mmol/L Carbon Dioxide 25 (22-32) mmol/L Anion Gap 11 (2-11) mmol/L BUN 16 (6-24) mg/dL Creatinine 0.89 (0.51-0.95) mg/dL Est GFR ( Amer) 77.9 (>60) Est GFR (Non-Af Amer) 60.6 (>60) BUN/Creatinine Ratio 18.0 (8-20) Glucose 106 H (70-100) mg/dL Lactic Acid 1.0 (0.5-2.0) mmol/L Calcium 10.3 (8.6-10.3) mg/dL Total Bilirubin 0.40 (0.2-1.0) mg/dL AST 17 (13-39) U/L ALT 11 (7-52) U/L Alkaline Phosphatase 60 (34-104) U/L C-Reactive Protein 8.65 H (< 5.00) mg/L Total Protein 7.5 (6.4-8.9) g/dL Albumin 4.1 (3.2-5.2) g/dL Globulin 3.4 (2-4) g/dL Albumin/Globulin Ratio 1.2 (1-3) Lipase 17 (11.0-82.0) U/L Result Diagrams: 03/19/18 15:25 03/19/18 15:25 Lab Statement: Any lab studies that have been ordered have been reviewed, and results considered in the medical decision making process. 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 ED physician has reviewed this report. Abdomen XRay Xray Interpretation: No Acute Changes Radiology Interpretation Completed By: Radiologist - 1. NO EVIDENCE FOR OBSTRUCTION. 2. CALCIFIC DENSITIES WHICH PROJECT OVER THE RIGHT MIDABDOMEN CONSISTENT WITH FOREIGN BODIES OR PILLS. ED physician has reviewed this report. - EKG 14:47 Cardiac Rate: NL EKG Rhythm: Sinus Rhythm - [address] Segment: Normal EKG Interpretation: Baseline artifact, nml axis - Additional Comments Diagnostic Additional Comments: Gallbladder US reveals: 1. NORMAL EXAMINATION OF THE GALLBLADDER. 2. SCATTERED CALCIFICATIONS WITHIN THE LIVER SUGGESTIVE OF OLD GRANULOMATOUS DISEASE. Re-Evaluation - Re-Evaluation First Eval Re-Evaluation Time: 17:49 Change: Improved - The pt states her abd pain has resolved. Abdominal Pain Fem Course/Dx - Course Course Of Treatment: 82-year-old female on chronic opiates for spinal stenosis presents with abdominal pain mostly in the right side that is sharp and stabbing in nature. It is intermittent. Her pain was treated and improved here. Gallbladder ultrasound was negative. X-ray of the chest is negative. KUB shows significant constipation and metallic containing pill fragments in the right upper quadrant. This is likely from her multivitamin containing iron. She was given enema with more relief. She will be increased in her MiraLAX at home, no collects added and Levsin for cramping. She will follow up closely with her primary care physician. - Diagnoses Differential Diagnosis: Positive: Bowel Obstruction, Constipation, Diverticulitis, Gall Bladder Disease, Pancreatitis Provider Diagnoses: Right sided abdominal pain, Chronic constipation Discharge - Sign-Out/Discharge Documenting (check all that apply): Discharge/Admit/Transfer - Discharge - Discharge Plan Condition: Improved Disposition: HOME Prescriptions: Bisacodyl SUPP* [Dulcolax Supp*] 10 mg PO DAILY PRN #5 supp PRN Reason: Constipation Hyoscyamine Sulfate [Levsin/Sl] 0.125 mg SL QID PRN #20 sub PRN Reason: cramping Patient Education Materials: Constipation (ED), Acute Abdominal Pain (ED) Referrals: Raymond Cooper MD [Primary Care Provider] - Additional Instructions: Increase MiraLAX to 3 times daily until looser stools. Tylenol, low doses of ibuprofen or Benadryl may help cramping. Abdominal massage, exercises may help. Natural fruit juices such as prune juice or apple juice and high fiber diet may help. Return if fever, increased pain, worse or other concerns as discussed. If this doesn't work and constipation is an ongoing problem a medication called Relistor may be prescribed. - Billing Disposition and Condition Condition: IMPROVED Disposition: Home The documentation as recorded by the Go singletary Stephanie accurately reflects the service I personally performed and the decisions made by me, Herve Medina MD.
[2018-03-19 18:24] VITALS: BP 120/63
== END 2018-03-19 18:23 | disposition home or self-care (01) ==
LOC: ED 13:29 → MERGE 13:29 → ED 18:23
DX: R10.31 Right lower quadrant pain (principal); K59.09 Other constipation; I10 Essential (primary) hypertension; M19.90 Unspecified osteoarthritis, unspecified site; M48.00 Spinal stenosis, site unspecified; K76.9 Liver disease, unspecified; Z86.718 Personal history of other venous thrombosis and embolism; Z86.711 Personal history of pulmonary embolism; Z79.01 Long term (current) use of anticoagulants; Z79.899 Other long term (current) drug therapy; Z79.891 Long term (current) use of opiate analgesic; Z87.891 Personal history of nicotine dependence; Z88.5 Allergy status to narcotic agent; Z88.8 Allergy status to other drugs, medicaments and biological substances
CPT/HCPCS: 36415; 71046; 74018; 76705; 80053; 83605; 83690; 85025; 86140; 93005; 96374; 96375; 99283; J1200; J1885

== ENCOUNTER 2019-06-08 15:35 | Emergency (ER) | payer MEDICARE ==
--- OUTSIDE RECORDS SUMMARY | 2019-06-08 15:59 | XMS REPORT | Continuity of Care Document ---
:1935 External Reference #:[id number] Author Name Ivan Souza MD (transmitted by agent of provider Donna Braga) Address [address] [facility], [facility] [place] [address] Care Team Providers Name Role Phone Pain Clinic - Pain Care Team Information Solar Installation Supervisor [phone] Jaren Veloz DO - Interventional Care Team Information Solar Installation Supervisor Pain Medicine Osito Mena MD - Neurological Care Team Information Solar Installation Supervisor [phone] Surgery Dane Griffin MD - Orthopaedic Care Team Information Solar Installation Supervisor Surgery Robert Solis MD - Urology Care Team Information Solar Installation Supervisor [phone] Visiting Nurse Services [facility] - Care Team Information Solar Installation Supervisor Home Health Pia Murray MD - Family Care Team Information Solar Installation Supervisor Medicine Problems Active Problems Provider Date Dermatomyositis Raymond Cooper M.D.,FACP Onset: 07/11/2010 H/O: pulmonary embolus Raymond Cooper M.D.,FACP Onset: 11/03/2016 Note: 2013, and DVT 2005 Benign essential hypertension Raymond Cooper M.D.,FACP Onset: 04/03/2011 Arthralgia of the lower leg Raymond Cooper M.D.,FACP Onset: 11/27/2011 Degenerative joint disease of pelvis Po Cabrera M.D. Onset: 07/28/2012 Spinal stenosis of lumbar region Po Cabrera M.D. Onset: 07/28/2012 Depressive disorder Raymond Cooper M.D.,FACP Onset: 01/20/2013 Degenerative joint disease of shoulder Raymond Cooper M.D.,FACP Onset: region Chronic pain syndrome Po Cabrera M.D. 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 Onset: 12/06/2015 Contracture of joint of hand Deshawn Rausch MD Onset: 07/01/2016 Convalescence after surgery Patel Huang M.D. Onset: 12/01/2016 Localized, primary osteoarthritis Ivan Souza MD Onset: 11/25/2018 Prosthetic arthroplasty of shoulder Ivan Souza MD Onset: 11/25/2018 Shoulder joint pain Ivna Souza MD Onset: 04/14/2019 Social History Type Date Description Comments Sex Unknown Cigarette Use Quit 45 Years Ago Tobacco Use Start: Unknown End: Former Cigarette Smoker Unknown Smoking Status Reviewed: 06/07/19 Former Cigarette Smoker ETOH Use 01/09/2017 Has consumed alcohol in abuse in past, in the past AA ETOH Use 01/11/2018 Denies alcohol use Recreational Drug Use Denies Drug Use Tobacco Use Start: Unknown End: Patient is a former Unknown smoker Exercise Type/Frequency Exercises regularly Allergies, Adverse Reactions, Alerts Active Allergies Reaction Severity Comments Date Codeine dizzy dizzy 07/11/2010 Morphine I.V. only gives blinding headache headache 07/11/2010 Hydrochlorothiazide sun sensitivity 03/21/2011 Medications Active Medications SIG Qnty Indications Ordering Date Provider Cymbalta 1 by mouth every 30caps Tanika Reddy MD 12/29/[address] jessica Unger With M17.12 Dane Griffin M.D. 08/16/2018 Seat And Hand Brakes Amoxicillin take 4 tablets by 4tabs Raymond Ferro 07/01/2017 500mg mouth 1 hour Naty Cooper,FACP Tablets before dental procedure Celecoxib Take 1 Capsule By 180caps Deborah 11/03/2016 200mg Mouth Twice Daily Naty Vaughan Capsules Duloxetine HCL Take 1 Capsule By 90capmelinda Ferro 01/16/2014 60mg Mouth Once Daily Naty Cooper,FACP Caps DR Lara Carisoprodol prn up to qid 90tabs M48.06 Raymond Ferro 07/28/2012 350mg total Naty Cooper,FACP Tablets Multi Vitamin 1 po qd 90tabs Raymond Ferro 01/17/2009 Tablets Naty Cooper,FACP Tamoxifen Citrate 1 by mouth every Unknown 20mg day at night Tablets Hydromorphone HCL ER Patricia, DOROTHY Lott 32mg T24a Hydromorphone HCL take 1 tab every Unknown 2mg 6 hours as needed Tablets for pain Eletriptan 40mg take 1 by Unknown mouth for headache & another tab in 1 hour if headache not resolved Bupropion 1 by mouth every 30tabs Angeli, Hydrochloride ER (XL) day Tanika Calvo, NUTRITION WORKER-R, RN 300mg Tablets ER 24HR Tylenol 2 tabs by mouth Unknown 325mg Tablets every 4 hours as needed Metoprolol Succinate 1 by mouth every Unknown ER day 25mg Tablets ER 24HR Xarelto take one tab per Unknown 10mg Tablets day Refresh take eye drops to Unknown 1.4-0.6% left eye daily Solution for irritation. Omeprazole 1 by mouth daily Unknown 20mg Capsules DR Chase- apply a thin Unknown 2.5% layer rectally Cream two times daily as needed Vitamin D 1 by mouth every Unknown 2000Unit day Capsules Miralax 17 gm qd Unknown [id number] Packet Antacid 2 tabs qid prn Unknown 80-20mg Chewtabs Medications Administered in Office Medication SIG Qnty Indications Ordering Provider Date Triamcinolone (Kenalog) Ivan Souza MD 11/25/2018 Injection Depomedrol 40MG Dane Griffin M.D. 05/20/2017 Injection Depomedrol 40MG Dane Griffin M.D. 05/20/2017 Injection Depomedrol 40MG Dane Griffin M.D. 12/12/2015 Injection Depomedrol 40MG Dane Griffin M.D. 10/24/2015 Injection Depomedrol 80MG Dane Griffin M.D. 07/18/2015 Injection Depomedrol 80MG Dane Griffin M.D. 02/01/2014 Injection Depomedrol 40MG Dane Griffin M.D. 12/01/2011 Injection Depomedrol 40MG Dane Griffin M.D. 04/02/2011 Injection Immunizations CPT Code Status Date Vaccine Lot # [id number] Given 08/05/2018 Fluzone High Dose 24933 Given 07/10/2017 Influenza Virus Vaccine, Quadrivalent, Split, Preservative Free [id number] Given 08/01/2016 Influ Virus Vaccine, Quadrivalent, Split Virus, [place] [id number] [address] Given 11/07/2015 Pneumococcal Conjugate Vaccine 13 Valent For [id number] Intramuscular Use 30878 Given 08/03/2015 Influenza Virus Vaccine, Quadrivalent, Split, Preservative Free 81328 Given 08/03/2014 Flu Vaccine Split Virus Preservative Free For [id number] Indiv 3Yr Older 22786 Given 06/29/2013 Flu Vaccine Split Virus Preservative Free For [id number] Indiv 3Yr Older Q2037 Given 08/06/2012 Fluvirin Im 3Yrs And Older Q2037 Given 08/06/2012 Fluvirin Im 3Yrs And Older [id number] 61530 Given 08/15/2011 Influenza Virus 3Yrs & Over 19218 Given 06/03/2011 Tdap - Tetanus/Diptheria/Acellular Pertussis [id number] 09988 Given 01/17/2009 Zoster (Zostavax) [id number] 39576 Given 01/17/2009 Pneumonia Vaccine [id number] Vital Signs Date Vital Result Comment 06/07/2019 11:10am Height 64 inches 5'4" Weight 170.00 lb Heart Rate 76 /min BP Systolic 120 mmHg BP Diastolic 70 mmHg Body Temperature 98.2 F Pain Level 7 BMI (Body Mass Index) 29.2 kg/m2 04/14/2019 2:10pm Height 64 inches 5'4" Weight 171.00 lb Heart Rate 91 /min BP Systolic 130 mmHg BP Diastolic 68 mmHg Body Temperature 99.7 F Pain Level 0 BMI (Body Mass Index) 29.3 kg/m2 Results Test Date Facility Test Result H/L Range Note Laboratory test 12/17/2018 [facility] Surgical SEE RESULT [address] [place] [address] [phone] 1 SEE RESULT BELOW Name: ARLYN HOPPER : [address]: Tanika Reddy MD Acct: [id number] Unit: [id number] AGE: 83 Location: [facility] Re12/17/18 SEX: F Status: DEP [facility] SPEC: [id number] MARISELA: 12/17/18-[address] [facility] [address]: Tanika Reddy MD REQ: [id number] RECD: 12/17/18263 STATUS: SOUT _ ORDERED: LEVEL 5/2, IMMUNO-FIRST, IMMUNO-QUANT/2 ADDENDUM Addendum: Due to relatively small sample size in the patient's original fine- needle aspiration biopsy immunochemical stains for UT and HER-2 are repeated with results as follows. UT negative, 1+, less than 5% Her 2 negative (0+). Addendum Signed (signature on file) Donnie Irby MD 1056 FINAL DIAGNOSIS 1. Breast, left, excision: -- Invasive ductal adenocarcinoma of breast, with: Size: 9 mm. Overall Mildred grade: 1/3 (5/9). Tubule formation: 2. Nuclear grade: 2. Mitotic count: 1. Margins: Surgical margins are widely clear by greater than 5 mm. Lymphovascular invasion: Not seen. Skin: No skin invasion identified. Chest-wall / pectoralis involvement: Not applicable Ductal carcinoma in situ (DCIS): Present. Size: 3 mm greatest span. Extent and distribution: Seen in association with invasive carcinoma only. Architectural pattern: Cribriform. Nuclear grade: 2. Necrosis: Not seen. Margins: Widely clear by greater than 5 mm. ER, UT, Her2/brian by immunohistochemistry with appropriate controls: CONTINUED ON NEXT PAGE DEPARTMENT OF PATHOLOGY, [address] [place] [address] Donnie Irby M.D. Director CLIA # [id number] RUN DATE: 12/22/18 [facility] LAB LIVE PAGE 2 Patient: ARLYN HOPPER [id number] (Continued) FINAL DIAGNOSIS (Continued) ER: Positive, 2???2 plus, 70% of tumor. See comment.. UT: Negative. Her2/brian: Negative (0+) . Microcalcifications: Present in association with DCIS. Other findings: Extensive blind duct ectasia involving lactiferous sinuses. pTNM histopathologic stage: pT 1B N 0 M N/A. 2. Axilla, left, sentinel lymphadenectomy: -- One lymph node with no tumor seen (0/1). See comment. Comment: The above rendered hormone receptor markers are from prior final aspiration biopsy CN [id number]. Stains for UT and HER-2 will be repeated on block 1C reported in an addendum. Per sentinel lymph node protocol multiple level sections as well as immunochemical stains for pankeratin were performed with appropriate controls in the evaluation of part 2. Dr. Amezquita has reviewed this case and concurs. PRE-OPERATIVE DIAGNOSIS Left breast mass; 1) short stitch superior, medium stitch medial, long stitch lateral GROSS DESCRIPTION 1. The specimen is received in formalin labeled, Left Breast Mass, Short Stitch Superior, Long Stitch Lateral, Medium Stitch Medial, and consists of a 6.8 x 5.2 by up to 2.9 cm yellow ovoid portion of fibrofatty soft tissue with three attached sutures which are designated as follows: long-lateral, short-superior and medium-medial. The specimen is partially surfaced by a 4.1 x 3.2 cm evans-white wrinkled ovoid skin fragment consisting predominantly of areolar tissue with a central 1.0 x 1.0 x 0.7 cm nipple. There is a 0.9 x CONTINUED ON NEXT PAGE DEPARTMENT OF PATHOLOGY, [address], [place], [place] [address] Donnie Irby M.D. Director SAÚL # [id number] RUN DATE: 12/22/18 [facility] LAB LIVE PAGE 3 Patient: ARLYN HOPPER [id number] (Continued) GROSS DESCRIPTION (Continued) 0.8 x 0.7 cm evans-white indurated lesion within the central specimen, 0.5 cm from the skin margin and 1.2 cm from the deep margin. Additionally, there is a evans-white well-defined dense rubbery area measuring up to 1.6 cm, medial and deep to the indurated lesion which abuts the deep margin. The remaining cut surface consists predominantly of yellow lobulated adipose tissue with scant interspersed evans-white fibrous tissue. The specimen is inked as follows: superior anterior-blue, inferior anterior-green and deep-black, serially sectioned from lateral to medial and branch service representative sections are submitted in cassettes A through J to include indurated lesion in cassettes C and D and rubbery area in cassettes F through H. 2. The specimen is received in formalin labeled, Left Axillary [place] Lymph Node, and consists of a 1.5 x 1.2 x 0.6 cm evans-lagunas lymph node with moderate adherent yellow fat. The lymph node is serially sectioned and entirely submitted in one cassette. Signed by and Reported on: Donnie Irby MD 1716 END OF REPORT DEPARTMENT OF PATHOLOGY, [address] [place] [address] Donnie Irby M.D. Director [facility] # [id number] Procedures Date Code Description Status 12/17/2018 00086 Biopsy/Excision Deep Axillary Node(S) Completed 12/17/2018 74403 Biopsy/Excision Deep Axillary Node(S) Completed 12/17/2018 31410 Mastectomy Partial Completed 12/17/2018 72205 Mastectomy Partial Completed 11/24/2018 [id number] Mammogram Completed 11/07/2016 [id number] Mammogram Completed 07/17/2016 [id number] Bone Mineral Density Test Completed 09/19/2015 [id number] Mammogram Completed 09/23/2013 [id number] Mammogram Completed 06/17/2011 [id number] Bone Mineral Density Test Completed 01/02/2011 [id number] Mammogram Completed 04/19/2004 [id number] Colonoscopy Completed 01/19/2004 [id number] Colonoscopy Completed Medical Devices Description No Information Available Encounters Type Date Location Provider Dx Diagnosis Office Visit 04/14/2019 Orthopedic Ivan Souza MD M19.011 [facility] osteoarthritis, right shoulder Z96.612 Presence of left artificial shoulder joint M25.512 Pain in left shoulder Office Visit 12/07/2018 1:00p Surgical Tanika Reddy, C50.912 [facility] neoplasm of unspecified site of left female breast Assessments Date Code Description Provider 04/14/2019 M19.011 Primary osteoarthritis, right shoulder Ivan Souza MD 04/14/2019 Z96.612 Presence of left artificial shoulder joint Ivan Souza MD 04/14/2019 M25.512 Pain in left shoulder Ivan Souza MD 12/29/2018 C50.912 Malignant neoplasm of unspecified site of left Tanika Reddy MD female breast 12/17/2018 C50.912 Malignant neoplasm of unspecified site of left Daphne Duran MD female breast 12/17/2018 C50.912 Malignant neoplasm of unspecified site of left Tanika Reddy MD female breast 12/07/2018 C50.912 Malignant neoplasm of unspecified site of left Tanika Reddy MD female breast Plan of Treatment No Information Available Functional Status Description No Information Available Mental Status Description No Information Available Referrals Description No Information Available
--- NOTE | 2019-06-08 17:14 | ED ---
Headache - HPI Summary HPI Summary: Patient is a 83 y/o F w/ Hx of migraines who presents to ED with and daughter for complaints of JENNINGS, N/V and photophobia. She reports onset of JENNINGS yesterday afternoon, 06/07/19. This morning, 06/08/19, at around 0300, JENNINGS became severe. She reports that since this, she has been nauseous and has been vomiting. Photophobia is endorsed as well, but she denies visual changes, slurred speech, numbness, tingling, or weakness of extremities. She states that she received cortisone injection yesterday, 06/07/19, at her right shoulder and left knee at around noon. Patient states that she is on "lots of opioids". Fever , abdominal pain are denied. Patient is capable of sitting up, but notes that JENNINGS and nausea are aggravated by this. Patient took Relpax at 0415 and 0515 this morning, 06/08/19, with no relief in Sx. Patient states that her JENNINGS is across her forehead and notes that her migraines are typically located at one, central point at her forehead. On triage, pain is rated 10/10, nothing is noted to aggravate/alleviate Sx. Home medications and allergies are reviewed. - History Of Current Complaint Chief Complaint: EDHeadache Stated Complaint: HEADACHE/NAUSEA/VOMITING PER PT Hx Obtained From: Patient Onset/Duration: Started days ago, Still Present Initially Headache Was: Moderate Currently Pain Is: Current Pain Scale(0-10)= - 10/10, Severe Timing: Days Character: Migraine Location of Headache: Other: - across forehead Aggravating Factor: Position Change - sitting up, Bright Lights Associated Signs And Symptoms: Nausea, Vomiting, Other (Noted In Comments) - denies visual changes, slurred speech, numbness, tingling, or weakness of extremities, fever, abdominal pain - Allergies/Home Medications Allergies/Adverse Reactions: Allergies Allergy/AdvReac Type Severity Reaction Status Date / Time hydrochlorothiazide Allergy Rash Verified 04/12/19 15:21 morphine AdvReac Severe SEVERE Verified 04/12/19 15:21 Headache codeine AdvReac Mild Dizziness Verified 04/12/19 15:21 Home Medications: Home Medications Calcium Carbonate [Antacid Extra Strength] 600 mg PO QID PRN 06/08/19 [History Confirmed 06/08/19] DULoxetine CAP* [Cymbalta CAP*] 80 mg PO DAILY 06/08/19 [History Confirmed ] Hydromorphone ER TAB(NF) [Exalgo] 32 mg PO DAILY 06/08/19 [History Confirmed 01/21] Lisinopril TAB* [Prinivil TAB*] 5 mg PO DAILY 06/08/19 [History Confirmed ] Lisinopril TAB* [Prinivil TAB*] 5 mg PO DAILY 06/08/19 [History Confirmed ] Metoprolol Succinate XL TAB* [Toprol XL TAB*] 25 mg PO DAILY 06/08/19 [History Confirmed 06/08/19] Tamoxifen TAB* [Nolvadex*] 20 mg PO BEDTIME 06/08/19 [History Confirmed 06/08/19 ] buPROPion TAB* [Wellbutrin TAB*] 50 mg PO QAM 06/08/19 [History Confirmed ] PMH/Surg Hx/FS Hx/Imm Hx Endocrine/Hematology History: Denies: Hx Diabetes Cardiovascular History: Reports: Hx Hypertension - ON MEDICATION FOR, Hx Rheumatic Fever - A CHILD Denies: Hx Congestive Heart Failure, Hx Pacemaker/ICD, Hx Peripheral Vascular Disease, Other Cardiovascular Problems/Disorders Respiratory History: Reports: Hx Pulmonary Embolism - 2012- Denies: Hx Asthma, Other Respiratory Problems/Disorders GI History: Reports: Hx Gastroesophageal Reflux Disease Denies: Other GI Disorders History: Reports: Other Problems/Disorders - FREQ BLADDER INFECTIONS Denies: Hx Renal Disease Musculoskeletal History: Reports: Hx Arthritis - OSTEO, Hx Back Problems, Hx Bursitis, Hx Osteoporosis, Other Musculoskeletal History - left hip replacement , right hip replacement Sensory History: Reports: Hx Cataracts - ROXANA, Hx Contacts or Glasses - GLASSES, Hx Hearing Aid - BILATERAL Denies: Hx Glaucoma Opthamlomology History: Reports: Hx Cataracts - ROXANA, Hx Contacts or Glasses - GLASSES Denies: Hx Glaucoma Neurological History: Reports: Hx Headaches, Hx Migraine - 2016 A TEEN AND 2015 AND 12/2015, OK NOW, Hx Nerve Disease, Other Neuro Impairments/Disorders - OSTEOARTHRITIS, LOWER BACK- PAIN CLINIC PT Psychiatric History: Reports: Hx Anxiety - SEES THERAPY, Hx Depression - THERAPY Denies: Hx Attention Deficit Hyperactivity Disorder, Hx Eating Disorder, Hx Panic Disorder, Hx Post Traumatic Stress Disorder, Hx Inpatient Treatment, Hx Community Mental Health Tx, Hx Schizophrenia, Hx Bipolar Disorder, Hx Suicide Attempt, Hx of Violent Episodes Against Others, Hx Substance Abuse, Other Psychiatric Issues/Disorders - Cancer History Cancer Type, Location and Year: pre-cancerous skin lesions removed Hx Chemotherapy: No Hx Radiation Therapy: No - Surgical History Surgery Procedure, Year, and Place: TONSILS CHILD. AGE 19 APPENDECTOMY- [facility]. 1997 BREAST REDUCTION- [facility]. 1998 LEFT TOTAL HIP REPLACEMENT- [facility]. 2012 RIGHT TOTAL HIP REPLACEMENT. 1993, BUNIONECTOMY, [facility]. ROXANA CARPAL TUNNEL, 2005. ROXANA CATARACTS, 2009, [facility]. LEFT SHOULDER REPLACEMENT, 2012, [facility]. LEFT HAND, 2015, [facility] -TRIGGER FINGER RELEASE. 11/2016 - LUMBAR L4-5, S1 - LAMINECTOMY Hx Anesthesia Reactions: No - Immunization History Date of Tetanus Vaccine: up to date Date of Influenza Vaccine: up to date Infectious Disease History: No Infectious Disease History: Denies: Hx Clostridium Difficile, Hx Hepatitis, Hx Human Immunodeficiency Virus (HIV), Hx of Known/Suspected MRSA, Hx Shingles, Hx Tuberculosis, Hx Known/ Suspected VRE, Hx Known/Suspected VRSA, History Other Infectious Disease, Traveled Outside the in Last 30 Days - Family History Known Family History: Positive: Hypertension, Other - bladder CA - Social History Alcohol Use: None Alcohol Amount: 3 glasses wine/day Hx Substance Use: No Substance Use Type: Reports: None Hx Tobacco Use: Yes Smoking Status (MU): Former Smoker Type: Cigarettes Amount Used/How Often: UP TO 2 PPD X 20 YEARS Have You Smoked in the Last Year: No Review of Systems Negative: Fever Eyes: Other - negative - visual changes Positive: Photophobia Positive: Vomiting, Nausea. Negative: Abdominal Pain Neurological: Other - negative - tingling of extremities Positive: Headache. Negative: Weakness - of extremities, Numbness - of extremities, Slurred Speech All Other Systems Reviewed And Are Negative: Yes Physical Exam - Summary Physical Exam Summary: General: Well-developed, Well-nourished female. No acute distress. Patient is a dark room. HEENT: Normocephalic, Atraumatic. Eyes: Conjuctiva normal, PERRL, EOMI. Ears: TMs within normal limits. Nares: (-) discharge, (-) erythema. Oropharynx: Clear, mucous membranes moist, (-) exudates. Neck: Soft, FROM, (-) lymphadenopathy, (-) thyromegaly, (-) JVD. Cardiovascular: Normal sinus rhythm, (-) murmur. Lungs: Clear to auscultation bilaterally (-) wheezes, (-) rales, (-) rhonchi. Abdomen: Soft, non-tender, non-distended, (-) organomegaly, normal bowel sounds. Back: (-) CVA tenderness Extremities: No edema. Skin: Warm, dry, (-) rash. Neuro: Alert and oriented x3, no focal deficits. No slurred speech, no decreased sensation or strength of extremities. GCS 15. Psychiatric: Mood normal, affect normal. Triage Information Reviewed: Yes Vital Signs On Initial Exam: Initial Vitals Temp Pulse Resp BP Pulse Ox 98.2 F 75 18 202/88 98 06/08/19 15:37 06/08/19 15:37 06/08/19 15:37 06/08/19 15:37 06/08/19 15:37 Vital Signs Reviewed: Yes Diagnostics - Vital Signs Vital Signs Temp Pulse Resp BP Pulse Ox 06/08/19 16:14 73 188/81 98 06/08/19 16:05 208/95 06/08/19 16:03 76 99 06/08/19 15:37 98.2 F 75 18 202/88 98 - Laboratory Result Diagrams: 06/08/19 18:13 06/08/19 18:13 Lab Statement: Any lab studies that have been ordered have been reviewed, and results considered in the medical decision making process. Re-Evaluation - Re-Evaluation First Eval Re-Evaluation Time: 18:28 Change: Improved Comment: After medications, patient subsequently reported that her JENNINGS went down from 10/10 to 9/10. Reglan, 10 mg IV to be administered. Headache Course/Dx - Course Course Of Treatment: Patient is a 83 y/o F w/ Hx of migraines who presents to ED with and daughter for complaints of JENNINGS, N/V and photophobia. On physical exam, patient is noted to have no slurred speech, decreased sensation or strength. PERRL, EOMI noted. Bloodwork was obtained. Abnormal values include WBC 12, RBC 4.94, absolute neuts 9.9, sodium 132, carbon dioxide 20, BUN/ creatinine ratio 21.3, glucose 125. Patient received fluids, Zofran 4 mg IV, toradol 15 mg IV, and Benadryl 50 mg IV. Patient subsequently reported that her JENNINGS went down from 10/10 to 9/10. Reglan, 10 mg IV to be administered, Head CT to be done. GCS of 15 is noted. Patient is signed-out to Dr. Villela pending re- evaluation of patient after medications. - Diagnoses Provider Diagnoses: Migraine Discharge ED - Sign-Out/Discharge Documenting (check all that apply): Sign-Out Patient Signing out patient TO: Fercho Villela Patient Received Moderate/Deep Sedation with Procedure: No - Discharge Plan Condition: Improved Disposition: HOME Patient Education Materials: Migraine Headache (ED) Referrals: Pia Murray MD [Primary Care Provider] - 2 Days - Billing Disposition and Condition Condition: IMPROVED Disposition: Home - Attestation Statements Document Initiated by Concetta: Yes Documenting Scribe: CANDI SIMON Provider For Whom Concetta is Documenting (Include Credential): FERCHO VILLELA MD Scribe Attestation: CANDI Avina, scribed for FERCHO VILLELA MD on 06/13/19 at 1945. Scribe Documentation Reviewed: Yes Provider Attestation: The documentation as recorded by the CANDI singletary accurately reflects the service I personally performed and the decisions made by FERCHO yoder MD Status of Scribe Document: Viewed
[2019-06-08] MEDS: Ondansetron INJ* 2 MG/ML VIAL IV ONE (17:36)
[2019-06-08] MEDS: diPHENhydraMINE IV* 50 MG/ML 1 ml VIAL (BENADRYL) IV ONE (17:36)
[2019-06-08] MEDS: Ketorolac INJ* 30 MG/ML 1 ML VIAL IV ONE (17:36)
[2019-06-08] MEDS: NS 0.9% 1000 ML** 1,000 ML IV ONE (17:37)
[2019-06-08 18:25] LABS: ABS Lymphocytes 1.5 10^3/ul (1.0-4.8); ABS Monocytes 0.6 10^3/ul (0-0.8); ABS Neutrophils 9.9 10^3/ul (1.5-7.7); Hematocrit 47 % (35-47); Hemoglobin 15.5 g/dL (12.0-16.0); Lymphocyte % 12.6 %; Mean Corpuscular HGB Conc 33 g/dL (31-36); Mean Corpuscular Hemoglobin 31 pg (27-31); Mean Corpuscular Volume 96 fL (80-97); Mean Platelet Volume 7.7 fL (7.4-10.4); Platelet Count 182 10^3/uL (150-450); Red Blood Count 4.94 10^6 /uL (3.70-4.87); Red Cell Distribution Width 13 % (10-15)
[2019-06-08 18:30] LABS: Albumin 4.1 g/dL (3.2-5.2); Calcium 9.8 mg/dL (8.6-10.3); Potassium 4.4 mmol/L (3.5-5.0); Total Bilirubin 0.4 mg/dL (0.2-1.0)
[2019-06-08 18:35] LABS: Albumin/Globulin Ratio 1.4 (1-3); BUN/Creatinine Ratio 21.3 (8-20); EGFR African American 89.1 (>60); EGFR Non-African American 73.6 (>60); Globulin 2.9 g/dL (2-4)
[2019-06-08] MEDS: Metoclopramide IV* 5 MG/ML 2 ML VIAL IV ONE (18:49)
--- NOTE | 2019-06-08 19:42 | ED ---
Progress - Progress Note Progress Note: Pt is a signout from Dr. Stapleton at 1900 on 06/08/[address] and re- evaluation. - Results/Orders Results/Orders: Brain CT No acute intracranial abnormality. ED physician has reviewed this report. Re-Evaluation - Re-Evaluation First Eval Re-Evaluation Time: 18:28 Course/Dx - Course Course Of Treatment: Pt is a signout from Dr. Stapleton at 1900 on 06/08/[address] and re-evaluation. Brain CT shows no acute intracranial abnormality. - Diagnoses Provider Diagnoses: Migraine Discharge ED - Sign-Out/Discharge Documenting (check all that apply): Receiving Sign-Out Receiving patient FROM: Terri Stapleton - Discharge Plan Condition: Stable Referrals: Pia Murray MD [Primary Care Provider] - - Attestation Statements Document Initiated by Scribe: Yes Documenting Scribe: Jess Lockwood Provider For Whom Scribe is Documenting (Include Credential): Lei Villela MD. Scribe Attestation: Jess Avina, [email or web address] for Lei Villela MD. on 06/08/19 at 2110.
[2019-06-08] MEDS: HYDROmorphone INJ1* 1 MG/ML SYRINGE IV SLOW PU ONE ×2 (20:08→22:04)
[2019-06-08 21:01] LABS: Urine Appearance Cloudy; Urine Bacteria 1+ (Absent); Urine Bilirubin Negative (Negative); Urine Blood Negative (Negative); Urine Color Yellow; Urine Glucose Negative (Negative); Urine Ketones Negative (Negative); Urine Nitrite Negative (Negative); Urine Protein Negative (Negative); Urine Red Blood Cell 2+(6-10/hpf) (Absent); Urine Specific Gravity 1.009 (1.010-1.030); Urine Squamous Epithelial Cell Present (Absent); Urine Urobilinogen Negative (Negative); Urine White Blood Cell 3+(>20/hpf) (Absent)
[2019-06-08 22:58] VITALS: BP 140/60
--- NOTE | 2019-06-10 08:24 | PN ---
Progress Note - Progress Note Date of Service: 06/08/19 Note: Urine culture obtained 06/08 growing >100k e. coli. Pt. was seen again in ED 06/09 and admitted. I spoke with pt.'s nurse today at 0810Gi, and she will f.u on urine culture.
== END 2019-06-08 22:58 | disposition home or self-care (01) ==
LOC: ED 15:35
DX: G43.909 Migraine, unspecified, not intractable, without status migrainosus (principal); I10 Essential (primary) hypertension; K21.9 Gastro-esophageal reflux disease without esophagitis; F41.9 Anxiety disorder, unspecified; F32.9 Major depressive disorder, single episode, unspecified; Z87.891 Personal history of nicotine dependence; Z79.01 Long term (current) use of anticoagulants; Z79.899 Other long term (current) drug therapy; Z88.5 Allergy status to narcotic agent; Z88.8 Allergy status to other drugs, medicaments and biological substances
CPT/HCPCS: 36415; 70450; 80053; 81003; 81015; 83605; 85025; 87077; 87086; 87186; 96361; 96374; 96375; 96376; 99283; J1170; J1200; J1885; J2405; J2765

== ENCOUNTER 2019-06-09 13:25 | Inpatient (IN) | payer MEDICARE ==
[2019-06-09] MEDS ORDERED: NS 0.9% 1000 ML** 1,000 ML IV ONE (16:09)
[2019-06-09] MEDS ORDERED: HYDROmorphone INJ1* 1 MG/ML SYRINGE IV SLOW PU ONE ×3 (16:09→19:22)
--- NOTE | 2019-06-09 19:50 | ED ---
Headache - HPI Summary HPI Summary: 83 year old F presenting [facility] accompanied by her and daughter with a chief complaint of headache since 399 yesterday, 06/08/19. The pain has been constant since onset. and daughter gave the first part of the HPI since the patient was in pain. They reported that she has a history of migraines as a teenager. Patient didnt experience any episodes since then until recently. Per family, this is her third or fourth time being in the hospital for headache, but the pain has always been resolved with Dilaudid. However, patient visited ER yesterday, 06/08/19, and returned to the ED today since the usual treatment was not effective in alleviating her pain. Patient usually takes a cocktail of Tylenol, Sumatriptan, and Dilaudid to treat her milder episodes. At this point in the visit the patient is speaking. Patient reports that her headaches are usually concentrated above the left eyebrow, but this time the pain is also radiating throughout her forehead. Patient is also experiencing symptoms of nausea and vomiting, aggravated by light exposure. Patient reports pain to be 10 /10 in severity. Her symptoms are aggravated by bright lights. 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 Supervisor - and daughter Onset/Duration: Started hours ago - 39906/08/19, approx 36 hours ago, Still Present Currently Pain Is: Current Pain Scale(0-10)= - 10 Timing: Constant Character: Migraine Location of Headache: Diffuse, Other: - concentrated above left eyebrow Aggravating Factor: Bright Lights Allevating Factors: Nothing Associated Signs And Symptoms: Nausea, Vomiting - Risk Factors Meningitis Risk Factors: Elderly Temporal Arteritis Risk Factors: Female, , Greater Than 60 Years Old - Allergies/Home Medications Allergies/Adverse Reactions: Allergies Allergy/AdvReac Type Severity Reaction Status Date / Time hydrochlorothiazide Allergy Rash Verified 04/12/19 15:21 morphine AdvReac Severe SEVERE Verified 04/12/19 15:21 Headache codeine AdvReac Mild Dizziness Verified 04/12/19 15:21 PMH/Surg Hx/FS Hx/Imm Hx Endocrine/Hematology History: Denies: Hx Diabetes Cardiovascular History: Reports: Hx Hypertension - ON MEDICATION FOR, Hx Rheumatic Fever - A CHILD Denies: Hx Congestive Heart Failure, Hx Pacemaker/ICD, Hx Peripheral Vascular Disease, Other Cardiovascular Problems/Disorders Respiratory History: Reports: Hx Pulmonary Embolism - 2012- Denies: Hx Asthma, Other Respiratory Problems/Disorders GI History: Reports: Hx Gastroesophageal Reflux Disease Denies: Other GI Disorders History: Reports: Other Problems/Disorders - FREQ BLADDER INFECTIONS Denies: Hx Renal Disease Musculoskeletal History: Reports: Hx Arthritis - OSTEO, Hx Back Problems, Hx Bursitis, Hx Osteoporosis, Other Musculoskeletal History - left hip replacement , right hip replacement Sensory History: Reports: Hx Cataracts - ROXANA, Hx Contacts or Glasses - GLASSES, Hx Hearing Aid - BILATERAL Denies: Hx Glaucoma Opthamlomology History: Reports: Hx Cataracts - ROXANA, Hx Contacts or Glasses - GLASSES Denies: Hx Glaucoma Neurological History: Reports: Hx Headaches, Hx Migraine - 2016 A TEEN AND 2015 AND 12/2015, OK NOW, Hx Nerve Disease, Other Neuro Impairments/Disorders - OSTEOARTHRITIS, LOWER BACK- PAIN CLINIC PT Psychiatric History: Reports: Hx Anxiety - SEES THERAPY, Hx Depression - THERAPY Denies: Hx Attention Deficit Hyperactivity Disorder, Hx Eating Disorder, Hx Panic Disorder, Hx Post Traumatic Stress Disorder, Hx Inpatient Treatment, Hx Community Mental Health Tx, Hx Schizophrenia, Hx Bipolar Disorder, Hx Suicide Attempt, Hx of Violent Episodes Against Others, Hx Substance Abuse, Other Psychiatric Issues/Disorders - Cancer History Cancer Type, Location and Year: pre-cancerous skin lesions removed Hx Chemotherapy: No Hx Radiation Therapy: No - Surgical History Surgical History: Yes Surgery Procedure, Year, and Place: TONSILS CHILD. AGE 19 APPENDECTOMY- [facility] [facility]. 1997 BREAST REDUCTION- [facility]. 1998 LEFT TOTAL HIP REPLACEMENT- [facility]. 2012 RIGHT TOTAL HIP REPLACEMENT. 1993, BUNIONECTOMY, [facility]. ROXANA CARPAL TUNNEL, 2005. ROXANA CATARACTS, 2009, [facility]. LEFT SHOULDER REPLACEMENT, 2012, [facility]. LEFT HAND, 2015, [facility] -TRIGGER FINGER RELEASE. 11/2016 - LUMBAR L4-5, S1 - LAMINECTOMY Hx Anesthesia Reactions: No - Immunization History Date of Tetanus Vaccine: up to date Date of Influenza Vaccine: up to date Infectious Disease History: No Infectious Disease History: Denies: Hx Clostridium Difficile, Hx Hepatitis, Hx Human Immunodeficiency Virus (HIV), Hx of Known/Suspected MRSA, Hx Shingles, Hx Tuberculosis, Hx Known/ Suspected VRE, Hx Known/Suspected VRSA, History Other Infectious Disease, Traveled Outside the [place] in Last 30 Days - Family History Known Family History: Positive: Hypertension, Other - bladder CA - Social History Alcohol Use: None Alcohol Amount: 3 glasses wine/day Hx Substance Use: No Substance Use Type: Reports: None Hx Tobacco Use: Yes Smoking Status (MU): Former Smoker Type: Cigarettes Amount Used/How Often: UP TO 2 PPD X 20 YEARS Have You Smoked in the Last Year: No Review of Systems Negative: Fever Positive: Vomiting, Diarrhea Positive: Headache - frontal All Other Systems Reviewed And Are Negative: Yes Physical Exam - Summary Physical Exam Summary: Appearance: The patient is in obvious pain and distress. Skin: The skin is warm and dry, and skin color reflects adequate perfusion. HEENT: The head is normocephalic and atraumatic. The pupils are equal and reactive. The conjunctivae are clear and without drainage. Nares are patent and without drainage. Mouth reveals moist mucous membranes, and the throat is without erythema or exudate. The external ears are intact. The ear canals are patent and without drainage. The tympanic membranes are intact. Neck: The neck is supple with full range of motion and non-tender. There are no carotid bruits. There is no neck vein distension. Respiratory: Chest is non-tender. Lungs are clear to auscultation and breath sounds are symmetrical and equal. Cardiovascular: Heart is regular rate and rhythm. There is no murmur or rub auscultated. There is no peripheral edema and pulses are symmetrical and equal. Abdomen: The abdomen is soft and non-tender. There are normal bowel sounds heard in all four quadrants and there is no organomegaly palpated. Musculoskeletal: There is no back tenderness noted. Extremities are non-tender with full range of motion. There is good capillary refill. There is no peripheral edema or calf tenderness elicited. Neurological: Patient is alert and oriented to person, place and time. The patient has symmetrical motor strength in all four extremities. Cranial nerves are grossly intact. Deep tendon reflexes are symmetrical and equal in all four extremities. Psychiatric: The patient has an appropriate affect and does not exhibit any anxiety or depression. Triage Information Reviewed: Yes Vital Signs On Initial Exam: Initial Vitals Temp Pulse Resp BP Pulse Ox 97.8 F 62 18 195/79 99 06/09/19 13:26 06/09/19 13:26 06/09/19 13:26 06/09/19 13:26 06/09/19 13:26 Vital Signs Reviewed: Yes Diagnostics - Vital Signs Vital Signs Temp Pulse Resp BP Pulse Ox 06/09/19 19:41 18 06/09/19 19:17 62 186/78 96 06/09/19 19:00 75 95 06/09/19 18:47 60 165/75 96 06/09/19 18:17 69 189/85 92 06/09/19 18:00 71 92 06/09/19 17:50 16 06/09/19 17:47 76 171/97 98 06/09/19 17:17 78 185/89 100 06/09/19 17:00 72 86 06/09/19 16:47 67 187/91 100 06/09/19 16:21 16 06/09/19 16:17 66 211/110 98 06/09/19 16:09 73 202/85 98 06/09/19 16:08 64 99 06/09/19 15:07 98.9 F 63 20 170/65 97 06/09/19 13:26 97.8 F 62 18 195/79 99 - Laboratory Lab Statement: Any lab studies that have been ordered have been reviewed, and results considered in the medical decision making process. Re-Evaluation - Re-Evaluation First Eval Re-Evaluation Time: 21:00 Change: Unchanged Comment: Patient's pain is not improving. We will consider admisison. Headache Course/Dx - Course Course Of Treatment: Ms. Hopper has presented twice as many days for an intractable migraine headache. She has not seen a neurologist for several years as she was seeing Dr. Alas. I was unable to relieve her headache with multiple doses of Dilaudid which is always worked in the past. I spoke with Dr. Melchor who recommended Solu-Medrol and magnesium. I spoke with the hospitalist for admission and evaluation by Dr. Melchor in the morning. - Diagnoses Provider Diagnoses: Migraine - Physician Notifications Discussed Care Of Patient With: Getachew Carver - hospitalist Time Discussed With Above Provider: 21:25 Instructed by Provider To: Other - Dr. Carver accepts the patient for admission. Discharge ED - Sign-Out/Discharge Documenting (check all that apply): Patient Departure - Patient accepted for admission by Dr. Carver. Patient Received Moderate/Deep Sedation with Procedure: No - Discharge Plan Condition: Stable Disposition: ADMITTED TO [facility] Patient Education Materials: Migraine Headache (ED) Referrals: Pia Murray MD [Primary Care Provider] - 3 Days Additional Instructions: Please follow up with your provider within the next three days. Please return to the emergency department for new or worsening symptoms. - Billing Disposition and Condition Condition: STABLE Disposition: Admitted to [facility] - Attestation Statements Document Initiated by Scribe: Yes Documenting Scribe: Keith Durand Provider For Whom Concetta is Documenting (Include Credential): Lei White MD Scribe Attestation: Keith Avina, scribed for Lei White MD on at 2154. Scribe Documentation Reviewed: Yes Provider Attestation: The documentation as recorded by the [email or web address], Keith Durand accurately reflects the service I personally performed and the decisions made by , Lei White MD Status of Scribe Document: Viewed
[2019-06-09] MEDS: PROCHLORPERAZINE INJ 5 MG/ML 2 ML VIAL IV PRN (19:57)
[2019-06-09] MEDS ORDERED: Magnesium Sulfate 2 GM IV* 2 GM/50 ML BAG IVPB ONE (20:36)
[2019-06-09] MEDS ORDERED: methylPREDNISolone 125 MG* 2 ML VIAL IV ONE (20:36)
[2019-06-10] MEDS ORDERED: Dextran 70/Hypromellose Tears Eye Drops 15 ml BTL (for Artificials Tears) BOTH EYES PRN (03:17)
[2019-06-10] MEDS ORDERED: Calcium Carbonate CHEW TAB* 500 MG (TUMS) PO PRN (03:17)
[2019-06-10] MEDS ORDERED: Carisoprodol TAB* 350 MG PO PRN (03:17)
[2019-06-10] MEDS: hydrALAZINE IV* 20 MG/ML VIAL IV SLOW PU PRN ×2 (04:13→21:16)
[2019-06-10] MEDS: PROCHLORPERAZINE INJ 5 MG/ML 2 ML VIAL IV PRN ×2 (05:01→18:29)
[2019-06-10] MEDS: HYDROmorphone INJ1* 1 MG/ML SYRINGE IV SLOW PU PRN ×3 (05:02→20:54)
--- NOTE | 2019-06-10 06:00 | HP ---
CC: Dr. Pia Murray* ADMISSION HISTORY AND PHYSICAL: DATE OF ADMISSION: 06/10/19 CHIEF COMPLAINT: This is an 83-year-old female with past medical history of pulmonary embolism and DVT, on Xarelto; history of left breast cancer, status post lumpectomy, on tamoxifen therapy; history of migrainous headache with previous ER visits for headaches requiring Dilaudid; history of depression; history of hypertension and dermatomyositis; and a history of spinal stenosis of the lumbar region, came in with another episode of intractable headache. The patient actually came the day prior to the ER, was given some Dilaudid and was feeling a bit better, was then subsequently discharged home, but again came back on 06/09/19 with complaints of persistent headache. The patient was given multiple Dilaudid again, which did not relieve her headache. Her normal cocktail of headache is Tylenol, sumatriptan, and Dilaudid, but given that this did not help with her headache, Dr. Lei White consulted Dr. Melchor, neurologist, who suggested starting the patient on some Solu-Medrol and magnesium and Dr. Melchor will evaluate the patient in the morning. The patient otherwise states that her headache is 10/10 in intensity, worse with light as accompanying nausea and vomiting, but no neck stiffness or neck rigidity. No other abdominal pain, chest pain, palpitations, or shortness of breath. No diarrhea. No other sick contacts. No fever or chills. PAST MEDICAL HISTORY: As mentioned: 1. 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 2. 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 3. History of migrainous headache with previous use of narcotics especially Dilaudid on a daily basis. 4. History of dermatomyositis. 5. History of benign essential hypertension, on multiple BP medications. 6. History of depression, on multiple psychiatric medications. 7. History of lumbar stenosis with chronic pain syndrome, on multiple pain medications. PAST SURGICAL HISTORY: Include appendectomy, tonsillectomy, bilateral cataract removal, breast reduction, carpal tunnel release bilaterally, hip replacement bilaterally, shoulder surgery on the left, trigger finger release on 3 fingers on the left hand. HOME MEDICATIONS: The patient is currently on multiple medications includin. Hydromorphone extended release tablet 32 mg oral daily and 2 to 4 mg every 6 hours with maximum daily dose of 8 mg. 2. Cymbalta 15 mg oral daily along with a 40 mg tablet. 3. Refresh Tears 1 drop both eyes p.r.n. for dry eyes. 4. Calcium carbonate p.r.n. for indigestion. 5. Bupropion 350 mg in the morning. 6. Tylenol 650 mg q.6 hours p.r.n. 7. Lisinopril 10 mg 1-1/2 tablet daily. 8. Hydrocortisone topical daily. 9. Vitamin D 2000 units oral daily every evening. 10. Soma 350 mg 4 times a day p.r.n. for moderate pain. 11. Omeprazole 20 mg every morning. 12. Multivitamin 1 tablet oral daily every morning. 13. Metoprolol 25 mg oral daily. 14. Celecoxib 200 mg oral b.i.d. 15. Tamoxifen 20 mg daily at bedtime. 16. Xarelto 10 mg daily at bedtime. 17. MiraLAX 17 g packet oral daily. ALLERGIES: The patient is allergic to HYDROCHLOROTHIAZIDE, MORPHINE, and CODEINE. FAMILY HISTORY: Noncontributory at her age. SOCIAL HISTORY: The patient lives with her and is a small former smoker , quit many years ago. Used to have a history of alcohol abuse in the past but quit many years ago and denies any other drug use. Initially, the patient was documented to be DNR. Upon further questioning, the patient did not want to sign the MOLST form and stated that she would rather be full code at this point and then once her comes back she would discuss with him and sign the MOLST form as necessary. She has already assigned her being the healthcare proxy. REVIEW OF SYSTEMS: A 14-point review of systems did not reveal any new information other than what is mentioned in the HPI. PHYSICAL EXAMINATION GENERAL: The patient is awake, alert, oriented x3, noted to be in no acute respiratory distress, was, however, bothered by the light. VITAL SIGNS: In the ER, BP was noted to be 191/89, heart rate 67, respiration rate 18, saturating 99% on room air, temperature was documented at 98.9. HEAD AND NECK: Atraumatic, normocephalic. Bilateral pupils are reactive. Oral mucosa is moist. Neck is supple. No jugular venous distention. LUNGS: Clear to auscultation bilaterally. No wheezing, rhonchi or rales. HEART: S1, S2. Regular rate and rhythm. ABDOMEN: Soft, nontender, nondistended. EXTREMITIES: No cyanosis, clubbing, or edema. DIAGNOSTIC STUDIES/LAB DATA: No labs performed today. IMPRESSION: This is an 83-year-old female with multiple medical problems including depression, anxiety, and chronic headache, here due to another episode of severe headache which is intractable and requiring admission. ASSESSMENT AND PLAN: 1. Intractable headache. The patient was already started on Dilaudid, which she states is her go to medications with these headaches. We will also consult neurologist to evaluate the patient and to see if the patient would benefit from any other medication adjustments or if any further testing is required on this patient. The patient already received a dose of steroid and magnesium according to neurologist's recommendation. 2. History of breast cancer, on tamoxifen. We will continue that. 3. History of hypertension. Restart home medications. 4. History of venous thromboembolism with pulmonary embolism and deep venous thrombosis, on Xarelto. We will continue the Xarelto. 5. History of depression. Restart home medications. 6. History of chronic pain. Restart home medications. 7. Code status. The patient was initially DNR; however, now she wants to be full code. We will wait to discuss with the patient's regarding her code status as she trusts her 's judgment as he is an internal medicine doctor as well. [id number]/[facility] #: [id number] MTDD
[2019-06-10] MEDS ORDERED: HYDROmorphone TAB* 2 MG PO ONE (06:30)
[2019-06-10] MEDS ORDERED: DULoxetine DR CAP* 20 MG CAP.DR PO SCH (09:00)
[2019-06-10] MEDS ORDERED: DULoxetine DR CAP* 60 MG CAP.DR PO SCH (09:00)
[2019-06-10] MEDS ORDERED: Lisinopril TAB* 10 MG PO SCH (09:00)
[2019-06-10] MEDS ORDERED: Lisinopril TAB* 5 MG PO SCH ×2 (09:00→15:00)
[2019-06-10] MEDS: buPROPion TAB* 100 MG PO SCH (09:41)
[2019-06-10] MEDS: Metoprolol Succinate XL TAB* 25 MG PO SCH (09:41)
[2019-06-10] MEDS: Pantoprazole TAB * 40 MG TAB PO SCH (09:41)
[2019-06-10] MEDS: Multivitamins/Minerals TAB PO SCH (09:41)
[2019-06-10] MEDS: Hydrocortisone 1% CREAM* 30 GM TUBE TOPICAL SCH (09:42)
[2019-06-10] MEDS: cefTRIAXone(*) 1 GM in NS 0.9% 50 ML* 50 ML IVPB SCH (09:42)
[2019-06-10] MEDS: BuPROPion XL* 300 MG TAB.XL PO SCH (10:56)
[2019-06-10] MEDS: HYDROmorphone TAB* 4 MG PO SCH ×2 (13:53→18:15)
[2019-06-10] MEDS: Polyethylene Glycol 3350* 17 GM PACKET PO SCH (13:55)
[2019-06-10] MEDS: DULoxetine DR CAP* 20 MG CAP.DR PO SCH (14:57)
[2019-06-10] MEDS: predniSONE TAB* 20 MG PO SCH (15:00)
[2019-06-10] MEDS ORDERED: Gadoteridol* (CONTRAST) 279.3 MG/ML 10 ML IV ONE (15:28)
--- NOTE | 2019-06-10 17:18 | CONS ---
NEUROLOGY CONSULTATION NOTE: DATE OF CONSULT: 06/10/19 CONSULTING PROVIDER: Dr. Carver. CHIEF COMPLAINT: Headaches. HISTORY OF PRESENT ILLNESS: Mrs. Hopper is a pleasant, 83-year-old right- handed female who has past medical history of pulmonary embolism and DVT, on Xarelto; history of left breast cancer, status post lumpectomy, on tamoxifen therapy; history of migrainous headache. She was seen by Dr. Alas for similar headaches in the past in 2016. The patient stated that she has had migraine headaches as a young adult, but it seemed to have subsided at around age 29 to 39, but the migraines came back when she was 80 years of age. The headaches are typical. She complains of bifrontal pain that is currently 8/10 in severity, pressure-like sensation, nonradiating, associated with photophobia and nausea. Sitting up seemed to help with the pain, lying flat or standing and walking worsens the pain. She used to take Imitrex and has now taken Relpax for the migraine headaches which has not helped. She used to get scintillating scotomas and auras but now does not get these visual disturbances any longer. Although when examining her today when doing the funduscopic examination, she noticed some zigzag lines on her visual field. Typically, the symptoms start gradually and they started Thursday evening after she received cortisol injections into the right shoulder and the left knee. The symptoms got worse on . The patient came in to ER on Thursday and received 2 dosages of 2 mg IV Dilaudid and the symptoms went away. She came back again on because the symptoms recurred and was requesting more Dilaudid therapy. However, when given Dilaudid therapy, the pain decreases from 10/10 to an 8.5/10 in severity. Typically, when it clears up, it gradually goes away on the right side and then gets better on the left side and completely goes away eventually. However, this type of headache has been refractory to medications. She received Solu-Medrol and magnesium 2 g IV yesterday with no improvement of the pain. The patient denied any acute visual disturbance. She denied any jaw claudication. She denied any focal weakness or paresthesias. She has had multiple lumbar spinal epidural injections in the past for chronic low back pain. The last injection was 4 months ago. She follows up with a pain management clinic. She has never been assessed for Botox therapy given that her headaches only present infrequently, but when they do present, she requires hospitalization. Her last severe headache was in 2005, where she had severe headaches every month in October, November, and December. She has had multiple ESRs checked, last one was 11/29/18 and it was 3. She had C-reactive protein checked in the past as well, last one being on 11/29/18 which was less than 1. Labs: The patient's sodium is 132, BUN and creatinine ratio is elevated at 21, glucose of 125. She had an urinalysis completed on 06/08/19 that showed evidence of pyuria with 3+ wbc's and trace leukocyte esterase and 1+ bacteria. The patient is extremely sad and depressed because of her medical condition as well as ageing. She sees psychiatrist/counselor, Tanika Suh and Elizabet Craig. Of note, the patient does have worse headaches in the morning when waken up that improve with hydromorphone therapy. PAST MEDICAL HISTORY: 1. Breast cancer with ductal adenocarcinoma, status post lumpectomy, on tamoxifen therapy. 2. Multiple DVTs and PEs, currently on Xarelto. 3. History of migraine headaches. 4. Dermatomyositis. 5. Hypertension. 6. Depression. 7. Lumbar stenosis with chronic pain syndrome. 8. Lumbar spine surgery 4 years ago, Dr. Huang did the procedure. PAST SURGICAL HISTORY: 1. Appendectomy. 2. Tonsillectomy. 3. Cataracts. 4. Lumbar spine surgery. 5. Bilateral hip replacement surgery. 6. Carpal tunnel release surgery. 7. Trigger finger release on the 3 fingers on the left hand. 8. Shoulder surgery. HOME MEDICATIONS: 1. Polyethylene glycol 17 g daily. 2. Omeprazole 20 mg p.o. in the morning. 3. Carisoprodol 350 mg p.o. 4 times a day. 4. Multivitamins. 5. Cholecalciferol 2000 units p.o. at night. 6. Celecoxib 200 mg p.o. b.i.d. 7. Carboxymethylcellulose sodium drops. 8. Hydrocortisone drops. 9. Acetaminophen 650 mg p.o. q.6 hours as needed. 10. Hydromorphone 2 to 4 mg p.o. every 6 hours. 11. Rivaroxaban 10 mg p.o. at bedtime. 12. Tamoxifen 20 mg p.o. at bedtime. 13. Hydromorphone ER 32 mg p.o. daily. 14. Lisinopril 5 mg p.o. daily. 15. Metoprolol 25 mg p.o. daily. 16. Buspirone 50 mg p.o. in the morning. 17. Duloxetine 80 mg p.o. daily. 18. Calcium carbonate 600 mg p.o. 4 times a day as needed. ALLERGIES: HYDROCHLOROTHIAZIDE, MORPHINE, and CODEINE. FAMILY HISTORY: No family history of stroke or seizures. SOCIAL HISTORY: The patient is . 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 She denied any tobacco or alcohol use. The patient is a former smoker. She does not drink alcohol regularly. REVIEW OF SYSTEMS: A 14-point review of systems was obtained, reviewed, and otherwise negative except for what is mentioned in the HPI. PHYSICAL EXAMINATION: Vitals: Temperature of 97.4, pulse of 69, respiratory rate of 16, oxygen saturation of 100, blood pressure of 176/72. In general, a well- nourished, well-developed female who appears in mild distress due to the headache. She has ice packs on her eyes. She is covering her eyes throughout the interview. She asked me to talk to her about the history. She also asked me why I am asking so many questions when I could be reading to medical chart. Head: Atraumatic, normocephalic. There is slight tenderness around the superficial temporals as well as the occipital region, but normal pulsation of the superficial temporalis artery bilaterally. No jaw claudication. She has shoulder tenderness. Eyes: Undilated funduscopic examination showed no evidence of any blurry disc margin. She has normal venous pulsation. Eyes and cornea are normal appearing. Neck is supple and symmetric with no carotid bruit , no nuchal rigidity, negative Brudzinski and Kernig signs bilaterally. Chest: Clear to auscultation bilaterally with no wheezing or rhonchi. Cardiovascular : Regular rate and rhythm with normal S1, S2. Extremities: Normal range of motion with cyanosis or edema. Skin: No skin lesions or laceration. Psych: Flat affect, depressed mood, denied any suicidal or homicidal ideation. Difficult to establish rapport. Mental Status: Awake, alert, oriented to person, place, time, and general circumstances. She has mild psychomotor slowing due to the headache. Speech and language including reputation, comprehension, and naming were all assessed and found to be normal. Cranial Nerves: Pupil equal, round, reactive to light. Extraocular muscles are intact. No facial asymmetry. Tongue is symmetric and midline with no atrophy or fasciculation. Motor Examination: Moves all 4 extremities symmetrically without any weakness. Bulk and tone are normal throughout. Reflexes 2+ in the upper and lower extremities except for 1+ at the ankles bilaterally. Downgoing plantar response bilaterally. Sensation is intact to light touch in the face and lower extremities bilaterally. Coordination: Normal [id number], heel- to-robb testing bilaterally. Gait: Wide-based gait, required a walker to ambulate to the bathroom. LABS, IMAGING, AND OTHER DIAGNOSTIC TESTING: As mentioned in the HPI. ASSESSMENT AND RECOMMENDATION: Mrs. Arlyn Hopper is an 83-year-old female with history of migraine headaches during her early adulthood, who had recurrence of migraines when she was 80 years of age, who has chronic pain syndrome with degenerative disk disease and status post lumbar spine surgery, hip surgery, and shoulder surgery in the past, who presents with a gradually onset headache for 2 days' duration. The headache is associated with some nausea, dry heave, and photophobia. On examination, other than diffuse tenderness and pain throughout the occipital and temporal region as well as some of the proximal extremities, she has no focal neurological deficit. Fundoscopic examination is unremarkable. The headache does not change with posture or positioning. The headache does slightly get better with Dilaudid therapy. The patient has not had any intracranial testing other than a CT of the head that was unremarkable. Overall, based on the clinical history and neurological assessment, I suspect the patient has severe status migrainosus with superimposed analgesic rebound headache. Narcotic therapy is not the treatment for migraine headaches. I am really concerned that the patient is going to have a really hard time getting off some of the IV Dilaudid at this time since she is requesting it frequently. Treatments at this time would include steroid therapy for a total of 7 days. I also would recommend an outpatient evaluation for an occipital nerve block. If her headaches persist and she has chronic migraine headaches for more than 3 months, then a Botox therapy can be also an option. In the meantime, we should rule out any secondary causes of headache such as metastatic disease given her history of cancer. She is already on a full dose of preventive medication with Cymbalta. She is also on Relpax, which I would not recommend her to take given her age and increased risk of cardiovascular or cerebrovascular disease. She did not respond to magnesium therapy and therefore adding magnesium for preventive therapy may not be as effective. She has no lateralizing neurological deficits. She has no symptoms to suggest a meningitis given the lack of fever or white count or any meningeal signs. Therefore, I do not think we need a lumbar puncture at this time; however, if her headaches worsen or persist, then checking for low- pressure headache versus chronic meningitis is considered. She has not been exposed to any ticks. I discussed these results with Mrs. and Dr. Hopper. The patient's son approached me outside the room and stated that he was extremely content that I discuss the polypharmacy/chronic narcotic therapy with the patient. The patient 's son stated that there could be some pushback as he has seen in the past with other providers when discussing to withhold some of the IV narcotic therapy. The son thinks that most of the symptoms could be related to overmedicated and stress/worsening of her depression. I am concerned that there is also depression playing a role here, but the patient refused to talk to any in-house therapist or psychiatrist since she has her own therapist. Unfortunately, there are not too many options for the patient at this time and hopefully the steroid therapy can help within a few days. I recommend treating her for urinary tract infection if the urine cultures are positive. Keep her hydrated. Minimize the use of IV narcotic therapy, especially that she is on p.o. Dilaudid. I will sign out to Dr. Hero Rodriges, who will follow the patient this weekend. We would like to get an MRI of the brain with/without contrast to also look for any low-pressure headaches or metastatic disease that can be contributing to her headache. [id number]/CPS #: [id number] [facility]
--- NOTE | 2019-06-10 17:50 | PN ---
Subjective Date of Service: 06/10/19 Interval History: In continued pain when seen this AM. She did miss her 32 mg extended release dilaudid this AM She is hesitant to discuss symptoms or history with this author and directs me to the chart and her . Objective Active Medications: Artificial Tears (Natural Balance Tears Eye Drop) 1 drop BOTH EYES DAILY PRN PRN Reason: DRY EYE Bupropion HCl (Wellbutrin Tab*) 50 mg PO QAM [facility] Last Admin: 06/10/19 09:41 Dose: 50 mg Bupropion HCl (Bupropion Xl*) 300 mg PO QAM [facility] Last Admin: 06/10/19 10:56 Dose: Not Given Calcium Carbonate (Tums*) 500 mg PO QID PRN PRN Reason: INDIGESTION Carisoprodol (Soma Tab*) 350 mg PO QID PRN PRN Reason: PAIN - MODERATE Cholecalciferol (Vitamin D Tab*) 2,000 units PO QPM [facility] Duloxetine HCl (Cymbalta Cap*) 80 mg PO DAILY [facility] Last Admin: 06/10/19 14:57 Dose: 80 mg Hydralazine HCl (Apresoline Iv*) 5 mg IV SLOW PU Q6H PRN PRN Reason: Systolic Bp Greater Than:160 Last Admin: 06/10/19 04:13 Dose: 5 mg Hydrocortisone (Hytone Cream 1%*) 1 applic TOPICAL DAILY [facility] Last Admin: 06/10/19 09:42 Dose: 1 applic Hydromorphone HCl (Dilaudid Tab*) 8 mg PO Q6H [facility] Last Admin: 06/10/19 13:53 Dose: 8 mg Hydromorphone HCl (Dilaudid Inj1s*) 1 mg IV SLOW PU Q4H PRN PRN Reason: PAIN - SEVERE Last Admin: 06/10/19 12:14 Dose: 1 mg Ceftriaxone Sodium 1 gm/ (Sodium Chloride) 50 mls @ 100 mls/hr IVPB Q24H [facility] Last Admin: 06/10/19 09:42 Dose: 100 mls/hr Lisinopril (Prinivil Tab*) 5 mg PO DAILY [facility] Last Admin: 06/10/19 14:58 Dose: 5 mg Metoprolol Succinate (Toprol Xl Tab*) 25 mg PO DAILY [facility] Last Admin: 06/10/19 09:41 Dose: 25 mg Multivitamins/Minerals (Theragran/Minerals Tab*) 1 tab PO QAM [facility] Last Admin: 06/10/19 09:41 Dose: 1 tab Pantoprazole Sodium (Protonix Tab*) 40 mg PO QAM [facility] Last Admin: 06/10/19 09:41 Dose: 40 mg Polyethylene Glycol/Electrolytes (Miralax*) 17 gm PO 1400 [facility] Last Admin: 06/10/19 13:55 Dose: 17 gm Prednisone (Deltasone Tab*) 60 mg PO DAILY [facility] Stop: 06/16/19 23:59 Last Admin: 06/10/19 15:00 Dose: 60 mg Prochlorperazine Edisylate (Compazine Inj*) 10 mg IV Q6H PRN PRN Reason: NAUSEA/VOMITING Last Admin: 06/09/19 19:57 Dose: 10 mg Rivaroxaban (Xarelto(*)) 10 mg PO BEDTIME [facility] Tamoxifen Citrate (Nolvadex*) 20 mg PO BEDTIME [facility] Vital Signs - 8 hr 06/10/19 06/10/19 06/10/19 11:15 12:14 13:53 Temperature 97.9 F Pulse Rate 65 Respiratory 16 20 18 Rate Blood Pressure 180/71 (mmHg) O2 Sat by Pulse 99 Oximetry 06/10/19 06/10/19 13:54 15:15 Temperature 98.2 F Pulse Rate 72 Respiratory 18 18 Rate Blood Pressure 180/82 (mmHg) O2 Sat by Pulse 100 Oximetry Oxygen Devices in Use Now: None Appearance: lying in room with lights out and eyes covered Eyes: No Scleral Icterus, PERRLA Ears/Nose/Mouth/Throat: NL Teeth, Lips, Gums, Clear Oropharnyx Neck: NL Appearance and Movements; NL JVP, Trachea Midline Respiratory: Symmetrical Chest Expansion and Respiratory Effort, Clear to Auscultation Cardiovascular: NL Sounds; No Murmurs; No JVD, RRR Abdominal: NL Sounds; No Tenderness; No Distention, No Hepatosplenomegaly Lymphatic: No Cervical Adenopathy Extremities: No Edema, No Clubbing, Cyanosis Skin: No Rash or Ulcers Neurological: Alert and Oriented x 3, - - minimal participation with strength testing, cn2-12 intact Assess/Plan/Problems-Billing Assessment: 83 yo F h/o chronic back pain on chronic high dose narcotics, h/o severe headaches, depression presenting with severe headache unresponsive to medications in the ED on 2 visits - Patient Problems (1) Status migrainosus Comment: appreciate comprehensive assessment from neurology consultation today rebound JENNINGS in setting of medications likely as well as underlying chronic pain, depression, and UTI found on hospital stay here. additional work up with LP may be necessary if fails to improve to evaluate pressure c/w steorids, chronic narcotics andti depressant minimize PRN narcotics knowing they may be hard to taper and there may be resistance from patient (2) Depression Comment: wellbutrin, cymbalta (3) Chronic pain Comment: long acting dilaudid changed to short acting standing since we do not have long acting on formulary and cannot accept meds from patients home (4) History of pulmonary embolism Comment: xarelto (5) UTI (urinary tract infection) Comment: CTX (6) DVT prophylaxis Comment: tremayne
[2019-06-10] MEDS ORDERED: Cholecalciferol TAB* 1000 UNITS PO SCH (18:00)
[2019-06-10] MEDS ORDERED: HYDROmorphone TAB* 4 MG PO SCH (18:15)
[2019-06-10] MEDS: Cholecalciferol TAB* 1000 UNITS PO SCH (18:28)
[2019-06-10] MEDS: Tamoxifen TAB* 10 MG PO SCH (21:16)
[2019-06-10] MEDS: Rivaroxaban TAB(*) 10 MG PO SCH (21:16)
[2019-06-11] MEDS ORDERED: hydrALAZINE IV* 20 MG/ML VIAL IV SLOW PU ONE (00:15)
[2019-06-11] MEDS: HYDROmorphone TAB* 4 MG PO SCH ×5 (00:21→23:41)
[2019-06-11] MEDS: PROCHLORPERAZINE INJ 5 MG/ML 2 ML VIAL IV PRN ×3 (02:15→15:12)
[2019-06-11] MEDS: hydrALAZINE IV* 20 MG/ML VIAL IV SLOW PU PRN (07:47)
[2019-06-11 08:12] LABS: ABS Lymphocytes 2.7 10^3/ul (1.0-4.8); ABS Monocytes 1.5 10^3/ul (0-0.8); ABS Neutrophils 9.7 10^3/ul (1.5-7.7); Hematocrit 49 % (35-47); Hemoglobin 16.5 g/dL (12.0-16.0); Lymphocyte % 19.6 %; Mean Corpuscular HGB Conc 34 g/dL (31-36); Mean Corpuscular Hemoglobin 31 pg (27-31); Mean Corpuscular Volume 94 fL (80-97); Mean Platelet Volume 8.2 fL (7.4-10.4); Nucleated Red Blood Cells % 0.1; Platelet Count 234 10^3/uL (150-450); Red Blood Count 5.24 10^6 /uL (3.70-4.87); Red Cell Distribution Width 14 % (10-15)
[2019-06-11 08:24] LABS: Calcium 9.7 mg/dL (8.6-10.3); EGFR African American 86.4 (>60); EGFR Non-African American 71.4 (>60); Potassium 3.8 mmol/L (3.5-5.0)
[2019-06-11] MEDS ORDERED: Lactated Ringers 1000 ML Bag* 1,000 ML IV SCH (09:00)
[2019-06-11] MEDS: Hydrocortisone 1% CREAM* 30 GM TUBE TOPICAL SCH (09:05)
[2019-06-11] MEDS: cefTRIAXone(*) 1 GM in NS 0.9% 50 ML* 50 ML IVPB SCH (09:09)
[2019-06-11] MEDS: DULoxetine DR CAP* 20 MG CAP.DR PO SCH (09:42)
[2019-06-11] MEDS: Metoprolol Succinate XL TAB* 25 MG PO SCH (09:42)
[2019-06-11] MEDS: BuPROPion XL* 300 MG TAB.XL PO SCH (09:43)
[2019-06-11] MEDS: buPROPion TAB* 100 MG PO SCH (09:43)
[2019-06-11] MEDS: Lisinopril TAB* 10 MG PO SCH (09:44)
[2019-06-11] MEDS: predniSONE TAB* 20 MG PO SCH (09:44)
[2019-06-11] MEDS: Pantoprazole TAB * 40 MG TAB PO SCH (09:44)
[2019-06-11] MEDS: Multivitamins/Minerals TAB PO SCH (09:44)
--- NOTE | 2019-06-11 12:45 | PN ---
Subjective Date of Service: 06/11/19 Length of Stay: 1 Days Interval History: Her and daughter are at the bedside. The patient was initially sleeping but awakens easily. She states that her headaches are marginally better this am but just received a dose of Dilaudid. Rates them 7/10. Some mild light sensitivity. No nuchal rigidity. Her reports 5-6 similar episodes of severe headaches in the last few years but her headaches are not a regular occurence. He states that overall, her chronic back pain has been controlled with her current regimen of narcotics, that she has been following with pain management for some time. No new headache symptoms. Denies any focal numbness, tingling or weakness, no vision changes. Headache remains diffuse, 7-10/10. Improved with medications. MRI Brain: No evidence of acute issues. No metastatic disease. No meningeal enhancement. Objective Active Medications: Artificial Tears (Natural Balance Tears Eye Drop) 1 drop BOTH EYES DAILY PRN PRN Reason: DRY EYE Bupropion HCl (Wellbutrin Tab*) 50 mg PO QAM [facility] Last Admin: 06/11/19 09:43 Dose: 50 mg Bupropion HCl (Bupropion Xl*) 300 mg PO QAM [facility] Last Admin: 06/11/19 09:43 Dose: 300 mg Calcium Carbonate (Tums*) 500 mg PO QID PRN PRN Reason: INDIGESTION Carisoprodol (Soma Tab*) 350 mg PO QID PRN PRN Reason: PAIN - MODERATE Cholecalciferol (Vitamin D Tab*) 2,000 units PO QPM@1800 [facility] Last Admin: 06/10/19 18:28 Dose: Not Given Duloxetine HCl (Cymbalta Cap*) 80 mg PO DAILY [facility] Last Admin: 06/11/19 09:42 Dose: 80 mg Hydralazine HCl (Apresoline Iv*) 5 mg IV SLOW PU Q6H PRN PRN Reason: Systolic Bp Greater Than:160 Last Admin: 06/11/19 07:47 Dose: 5 mg Hydrocortisone (Hytone Cream 1%*) 1 applic TOPICAL DAILY [facility] Last Admin: 06/10/19 09:42 Dose: 1 applic Hydromorphone HCl (Dilaudid Tab*) 8 mg PO Q6H [facility] Last Admin: 06/11/19 12:05 Dose: 8 mg Hydromorphone HCl (Dilaudid Inj1s*) 1 mg IV SLOW PU Q4H PRN PRN Reason: PAIN - SEVERE Last Admin: 06/10/19 20:54 Dose: 1 mg Ceftriaxone Sodium 1 gm/ (Sodium Chloride) 50 mls @ 100 mls/hr IVPB Q24H [facility] Last Admin: 06/11/19 09:09 Dose: 100 mls/hr Lactated Ringer's (Lactated Ringers 1000 Ml Bag*) 1,000 mls @ 250 mls/hr IV PER RATE [facility] Stop: 06/11/19 12:59 Last Admin: 06/11/19 10:26 Dose: 250 mls/hr Lisinopril (Prinivil Tab*) 20 mg PO DAILY [facility] Last Admin: 06/11/19 09:44 Dose: 20 mg Metoprolol Succinate (Toprol Xl Tab*) 25 mg PO DAILY [facility] Last Admin: 06/11/19 09:42 Dose: 25 mg Multivitamins/Minerals (Theragran/Minerals Tab*) 1 tab PO QAM [facility] Last Admin: 06/11/19 09:44 Dose: 1 tab Pantoprazole Sodium (Protonix Tab*) 40 mg PO QAM [facility] Last Admin: 06/11/19 09:44 Dose: 40 mg Polyethylene Glycol/Electrolytes (Miralax*) 17 gm PO 1400 [facility] Last Admin: 06/10/19 13:55 Dose: 17 gm Prednisone (Deltasone Tab*) 60 mg PO DAILY [facility] Stop: 06/16/19 23:59 Last Admin: 06/11/19 09:44 Dose: 60 mg Prochlorperazine Edisylate (Compazine Inj*) 10 mg IV Q6H PRN PRN Reason: NAUSEA/VOMITING Last Admin: 06/11/19 09:07 Dose: 10 mg Rivaroxaban (Xarelto(*)) 10 mg PO BEDTIME [facility] Last Admin: 06/10/19 21:16 Dose: 10 mg Tamoxifen Citrate (Nolvadex*) 20 mg PO BEDTIME [facility] Last Admin: 06/10/19 21:16 Dose: 20 mg Vital Signs 06/10/19 06/10/19 06/10/19 13:53 13:54 15:15 Temperature 98.2 F Pulse Rate 72 Respiratory 18 18 18 Rate Blood Pressure 180/82 (mmHg) O2 Sat by Pulse 100 Oximetry 06/10/19 06/10/19 06/10/19 18:14 18:15 20:00 Temperature Pulse Rate Respiratory 16 16 18 Rate Blood Pressure (mmHg) O2 Sat by Pulse Oximetry 06/10/19 06/10/19 06/10/19 20:30 20:53 20:54 Temperature 99.1 F Pulse Rate 74 Respiratory 22 22 16 Rate Blood Pressure 172/76 (mmHg) O2 Sat by Pulse 97 Oximetry 06/10/19 06/11/19 06/11/19 22:41 00:11 00:21 Temperature 98 F Pulse Rate 72 Respiratory 16 18 18 Rate Blood Pressure 176/76 (mmHg) O2 Sat by Pulse 96 Oximetry 06/11/19 06/11/19 06/11/19 02:20 03:15 05:31 Temperature 97.8 F Pulse Rate 78 Respiratory 16 16 20 Rate Blood Pressure 152/76 (mmHg) O2 Sat by Pulse 97 Oximetry 06/11/19 06/11/19 06/11/19 07:45 08:58 12:05 Temperature Pulse Rate Respiratory 14 16 Rate Blood Pressure 164/90 (mmHg) O2 Sat by Pulse Oximetry Intake and Output Last 24 Hours 06/09/19 06/10/19 06/11/19 06/12/19 06:59 06:59 06:59 06:59 Intake Total 1000 100 Output Total 0 Balance 1000 100 Weight 182 lb 12.8 oz 182 lb 12.8 oz Intake: IV Fluids 1000 50 NS (0.9%) 50 IVPB 50 ABX - CEFTRIAXONE 50 Oral 0 0 Output: Urine 0 Other: # Bowel Movements 0 # Voids 0 0 Oxygen Devices in Use Now: None Neurology Exam: General: Well nourished, well developed, and in no acute distress, sleeping comfortably HEENT: Normocephalic/atraumatic, sclera anicteric, mucous membranes moist Neck: Supple, no rigidity Chest: Clear to auscultation bilaterally Cardiovascular: Regular rate and rhythm without murmurs, rubs, gallops Abdomen: Soft, non-tender/non-distended Extremities: No clubbing, cyanosis, or edema Neurological Findings: Sleeping but awakens easily, somnolent. Speech: fluent without dysarthria Cranial Nerve: PERRL, EOM intact, VFF, no nystagmus, face symmetric bilaterally , facial sensation intact, hearing intact to finger rub bilaterally, palate elevates symmetrically, tongue midline, SCM and Trapezius s/s. Motor: antigravity X 4 Deep Tendon Reflex: 1+ symmetric in the upper/lower extremities No tremors Result Diagrams: 06/11/19 07:28 06/11/19 07:28 Assessment/Plan 83 year old female with a history of chronic pain, chronic back issues status post surgery in the past, on chronic opioids for her pain, a history of intermittent migraines admitted with status migrainosus. --I suspect an element of medication induced headaches as well although she has been on her current regimen of opioids for some time and overall, these seem to be helping her with her chronic back pain. Ideally, any opportunity to wean down on her pain medications would be good for a number of reasons, including the possibility that it could help prevent further headaches in the future. Realistically, given her conditions and the fact that she has been working with pain management for years and feels that her current regimen is controlling her overall symptoms better now than in the recent past, the opportunity to dramatically reduce her dose is unlikely to happen. With that said, I agree that using Tryptans at this point to manage her headaches is not day, given her age and the complications/risks associated with this class of medications. I worry that given her lack of persistent, chronic migraines that are refractory to treatment over a period of time, she might not qualify for Botox or CGRP antagonists. This is something that will need to be explored further as an outpatient. We could add Riboflavin 400mg a day to her regimen but again, this is longer-term preventative and not likely to help in the short term. I agree with continued steroid use for the next 5-7 days, aggressive treatment of her UTI and continued use of narcotics prn for her severe pain. My suspicion for either meningitis or low pressure headaches is very low and I do not think an LP would be high yield at this point. If her headaches worsen, we can consider an LP. There is no evidence on MRI of mass effect or meningeal enhancement which can sometimes be seen with low pressure headaches. I will continue to follow along. Her headaches are slightly better this morning and it is my hope that she might be responding to the steroids and that her headaches will continue to improve.
[2019-06-11] MEDS: Polyethylene Glycol 3350* 17 GM PACKET PO SCH (14:55)
--- NOTE | 2019-06-11 17:59 | PN ---
Subjective Date of Service: 06/11/19 Interval History: Seen with daughter and at bedside Patient and family all in agreement that she is a little better today JENNINGS marginally improved, she is more communicative Objective Active Medications: Artificial Tears (Natural Balance Tears Eye Drop) 1 drop BOTH EYES DAILY PRN PRN Reason: DRY EYE Bupropion HCl (Wellbutrin Tab*) 50 mg PO QAM [facility] Last Admin: 06/11/19 09:43 Dose: 50 mg Bupropion HCl (Bupropion Xl*) 300 mg PO QAM [facility] Last Admin: 06/11/19 09:43 Dose: 300 mg Calcium Carbonate (Tums*) 500 mg PO QID PRN PRN Reason: INDIGESTION Carisoprodol (Soma Tab*) 350 mg PO QID PRN PRN Reason: PAIN - MODERATE Cholecalciferol (Vitamin D Tab*) 2,000 units PO QPM@1800 [facility] Last Admin: 06/10/19 18:28 Dose: Not Given Duloxetine HCl (Cymbalta Cap*) 80 mg PO DAILY [facility] Last Admin: 06/11/19 09:42 Dose: 80 mg Hydralazine HCl (Apresoline Iv*) 5 mg IV SLOW PU Q6H PRN PRN Reason: Systolic Bp Greater Than:160 Last Admin: 06/11/19 07:47 Dose: 5 mg Hydrocortisone (Hytone Cream 1%*) 1 applic TOPICAL DAILY [facility] Last Admin: 06/11/19 09:05 Dose: 1 applic Hydromorphone HCl (Dilaudid Tab*) 8 mg PO Q6H [facility] Last Admin: 06/11/19 12:05 Dose: 8 mg Hydromorphone HCl (Dilaudid Inj1s*) 1 mg IV SLOW PU Q4H PRN PRN Reason: PAIN - SEVERE Last Admin: 06/10/19 20:54 Dose: 1 mg Ceftriaxone Sodium 1 gm/ (Sodium Chloride) 50 mls @ 100 mls/hr IVPB Q24H [facility] Last Admin: 06/11/19 09:09 Dose: 100 mls/hr Lisinopril (Prinivil Tab*) 20 mg PO DAILY [facility] Last Admin: 06/11/19 09:44 Dose: 20 mg Metoprolol Succinate (Toprol Xl Tab*) 25 mg PO DAILY [facility] Last Admin: 06/11/19 09:42 Dose: 25 mg Multivitamins/Minerals (Theragran/Minerals Tab*) 1 tab PO QAM [facility] Last Admin: 06/11/19 09:44 Dose: 1 tab Pantoprazole Sodium (Protonix Tab*) 40 mg PO QAM [facility] Last Admin: 06/11/19 09:44 Dose: 40 mg Polyethylene Glycol/Electrolytes (Miralax*) 17 gm PO 1400 [facility] Last Admin: 06/11/19 14:55 Dose: 17 gm Prednisone (Deltasone Tab*) 60 mg PO DAILY [facility] Stop: 06/16/19 23:59 Last Admin: 06/11/19 09:44 Dose: 60 mg Prochlorperazine Edisylate (Compazine Inj*) 10 mg IV Q6H PRN PRN Reason: NAUSEA/VOMITING Last Admin: 06/11/19 15:12 Dose: 10 mg Rivaroxaban (Xarelto(*)) 10 mg PO BEDTIME [facility] Last Admin: 06/10/19 21:16 Dose: 10 mg Tamoxifen Citrate (Nolvadex*) 20 mg PO BEDTIME [facility] Last Admin: 06/10/19 21:16 Dose: 20 mg Vital Signs - 8 hr 06/11/19 06/11/19 06/11/19 11:15 12:05 14:45 Temperature 97.6 F Pulse Rate 68 Respiratory 16 16 16 Rate Blood Pressure 187/79 (mmHg) O2 Sat by Pulse 100 Oximetry Oxygen Devices in Use Now: None Appearance: lying flat, no distress Ears/Nose/Mouth/Throat: NL Teeth, Lips, Gums, Clear Oropharnyx Neck: NL Appearance and Movements; NL JVP, Trachea Midline Respiratory: Symmetrical Chest Expansion and Respiratory Effort, Clear to Auscultation Cardiovascular: NL Sounds; No Murmurs; No JVD, RRR Abdominal: NL Sounds; No Tenderness; No Distention Lymphatic: No Cervical Adenopathy Extremities: No Edema Skin: No Rash or Ulcers Neurological: Alert and Oriented x 3, - - opens eyes to talk, CN 2-12 intact, strength symetric throughout Result Diagrams: 06/11/19 07:28 06/11/19 07:28 Assess/Plan/Problems-Billing Assessment: 83 yo F h/o chronic back pain on chronic high dose narcotics, h/o severe headaches, depression presenting with severe headache unresponsive to medications in the ED on 2 visits - Patient Problems (1) Status migrainosus Comment: appreciate comprehensive assessment from neurology consultation rebound JENNINGS in setting of medications likely as well as underlying chronic pain, depression, and UTI found on hospital stay here. additional work up with LP may be necessary if JENNINGS worsens to evaluate pressure c/w steorids, chronic narcotics anti depressant minimize PRN narcotics knowing they may be hard to taper and there may be resistance from patient LR today for presumed dehydration noted on CBC today treat underlying UTI (2) Depression Comment: wellbutrin, cymbalta (3) Chronic pain Comment: long acting dilaudid changed to short acting standing since we do not have long acting on formulary and cannot accept meds from patients home (4) History of pulmonary embolism Comment: xarelto (5) UTI (urinary tract infection) Comment: CTX (6) DVT prophylaxis Comment: tremayne
[2019-06-11] MEDS: Cholecalciferol TAB* 1000 UNITS PO SCH (18:10)
[2019-06-11] MEDS: Rivaroxaban TAB(*) 10 MG PO SCH (21:19)
[2019-06-11] MEDS: Tamoxifen TAB* 10 MG PO SCH (21:19)
[2019-06-12] MEDS: HYDROmorphone TAB* 4 MG PO SCH ×3 (06:02→18:33)
[2019-06-12 07:51] LABS: ABS Lymphocytes 1.9 10^3/ul (1.0-4.8); ABS Monocytes 1.1 10^3/ul (0-0.8); ABS Neutrophils 6.8 10^3/ul (1.5-7.7); Hematocrit 44 % (35-47); Hemoglobin 14.5 g/dL (12.0-16.0); Lymphocyte % 19.2 %; Mean Corpuscular HGB Conc 34 g/dL (31-36); Mean Corpuscular Hemoglobin 32 pg (27-31); Mean Corpuscular Volume 94 fL (80-97); Mean Platelet Volume 8.1 fL (7.4-10.4); Platelet Count 198 10^3/uL (150-450); Red Cell Distribution Width 13 % (10-15); White Blood Count 9.9 10^3/uL (3.5-10.8)
[2019-06-12 08:04] LABS: BUN/Creatinine Ratio 26.9 (8-20); Calcium 8.7 mg/dL (8.6-10.3); EGFR African American 85.1 (>60); EGFR Non-African American 70.4 (>60)
[2019-06-12] MEDS: PROCHLORPERAZINE INJ 5 MG/ML 2 ML VIAL IV PRN (08:28)
[2019-06-12] MEDS ORDERED: Metoprolol Tartrate IV* 1 MG/ML 5 ML VIAL IV ONE ×3 (09:05→11:22)
[2019-06-12] MEDS: Multivitamins/Minerals TAB PO SCH (10:01)
[2019-06-12] MEDS: buPROPion TAB* 100 MG PO SCH (10:01)
[2019-06-12] MEDS: Lisinopril TAB* 10 MG PO SCH (10:02)
[2019-06-12] MEDS: Metoprolol Succinate XL TAB* 25 MG PO SCH (10:02)
[2019-06-12] MEDS: Pantoprazole TAB * 40 MG TAB PO SCH (10:03)
[2019-06-12] MEDS: DULoxetine DR CAP* 20 MG CAP.DR PO SCH (10:03)
[2019-06-12] MEDS: predniSONE TAB* 20 MG PO SCH (10:03)
[2019-06-12] MEDS: BuPROPion XL* 300 MG TAB.XL PO SCH (10:03)
[2019-06-12] MEDS: cefTRIAXone(*) 1 GM in NS 0.9% 50 ML* 50 ML IVPB SCH (10:04)
[2019-06-12] MEDS: Hydrocortisone 1% CREAM* 30 GM TUBE TOPICAL SCH (11:15)
[2019-06-12] MEDS ORDERED: Diltiazem DRIP* 100 MG/100 ML ADDV.BAG IV SCH (13:00)
[2019-06-12] MEDS ORDERED: Diltiazem 125 mg in 125 mL NS (continuous infusion) IV SCH (13:00)
[2019-06-12] MEDS ORDERED: Rivaroxaban TAB(*) 10 MG PO ONE (13:06)
[2019-06-12] MEDS ORDERED: Rivaroxaban TAB(*) 20 MG TAB PO ONE (13:08)
[2019-06-12] MEDS ORDERED: Iohexol 350* (CONTRAST) 500 ML MDV IV ONE (13:33)
[2019-06-12 13:45] LABS: Magnesium 2.4 mg/dL (1.9-2.7)
[2019-06-12 13:48] LABS: Troponin I 0.02 ng/mL (<0.04)
[2019-06-12] MEDS ORDERED: Diltiazem IV VIAL* 125 MG in NS 0.9% 100 ML* 100 ML IV SCH ×4 (14:45→19:00)
[2019-06-12] MEDS: Polyethylene Glycol 3350* 17 GM PACKET PO SCH (15:12)
--- NOTE | 2019-06-12 16:08 | PN ---
Subjective Date of Service: 06/12/19 Interval History: Seen multiple times today This AM JENNINGS near completely resolved. Smiling, requesting to return home Afib with rates noted up to 180 noted on tele. Pt pain free, no CP, SOB, LH, N/V Transferred to . Pt more fatigued as afib rate not adequately controlled Remains CP free Objective Active Medications: Artificial Tears (Natural Balance Tears Eye Drop) 1 drop BOTH EYES DAILY PRN PRN Reason: DRY EYE Bupropion HCl (Wellbutrin Tab*) 50 mg PO QAM [facility] Last Admin: 06/12/19 10:01 Dose: 50 mg Bupropion HCl (Bupropion Xl*) 300 mg PO QAM [facility] Last Admin: 06/12/19 10:03 Dose: 300 mg Calcium Carbonate (Tums*) 500 mg PO QID PRN PRN Reason: INDIGESTION Carisoprodol (Soma Tab*) 350 mg PO QID PRN PRN Reason: PAIN - MODERATE Cholecalciferol (Vitamin D Tab*) 2,000 units PO QPM@1800 [facility] Last Admin: 06/11/19 18:10 Dose: 2,000 units Duloxetine HCl (Cymbalta Cap*) 80 mg PO DAILY [facility] Last Admin: 06/12/19 10:03 Dose: 80 mg Hydralazine HCl (Apresoline Iv*) 5 mg IV SLOW PU Q6H PRN PRN Reason: Systolic Bp Greater Than:160 Last Admin: 06/11/19 07:47 Dose: 5 mg Hydrocortisone (Hytone Cream 1%*) 1 applic TOPICAL DAILY [facility] Last Admin: 06/12/19 11:15 Dose: Not Given Hydromorphone HCl (Dilaudid Tab*) 8 mg PO Q6H [facility] Last Admin: 06/12/19 12:11 Dose: 8 mg Hydromorphone HCl (Dilaudid Inj1s*) 1 mg IV SLOW PU Q4H PRN PRN Reason: PAIN - SEVERE Last Admin: 06/10/19 20:54 Dose: 1 mg Ceftriaxone Sodium 1 gm/ (Sodium Chloride) 50 mls @ 100 mls/hr IVPB Q24H [facility] Last Admin: 06/12/19 10:04 Dose: 100 mls/hr Diltiazem HCl 125 mg/ Sodium (Chloride) 125 mls @ 10 mls/hr IV Q12H [facility]; Protocol Last Admin: 06/12/19 15:25 Dose: 10 mls/hr Lisinopril (Prinivil Tab*) 20 mg PO DAILY [facility] Last Admin: 06/12/19 10:02 Dose: 20 mg Metoprolol Succinate (Toprol Xl Tab*) 25 mg PO DAILY [facility] Last Admin: 06/12/19 10:02 Dose: 25 mg Multivitamins/Minerals (Theragran/Minerals Tab*) 1 tab PO QAM [facility] Last Admin: 06/12/19 10:01 Dose: 1 tab Pantoprazole Sodium (Protonix Tab*) 40 mg PO QAM [facility] Last Admin: 06/12/19 10:03 Dose: 40 mg Polyethylene Glycol/Electrolytes (Miralax*) 17 gm PO 1400 [facility] Last Admin: 06/12/19 15:12 Dose: 17 gm Prednisone (Deltasone Tab*) 60 mg PO DAILY [facility] Stop: 06/16/19 23:59 Last Admin: 06/12/19 10:03 Dose: 60 mg Prochlorperazine Edisylate (Compazine Inj*) 10 mg IV Q6H PRN PRN Reason: NAUSEA/VOMITING Last Admin: 06/12/19 08:28 Dose: 10 mg Rivaroxaban (Xarelto(*)) 20 mg PO QPM [facility] Tamoxifen Citrate (Nolvadex*) 20 mg PO BEDTIME [facility] Last Admin: 06/11/19 21:19 Dose: 20 mg Vital Signs - 8 hr 06/12/19 06/12/19 06/12/19 08:07 08:29 09:15 Temperature 99.1 F Pulse Rate 68 154 Respiratory 18 14 Rate Blood Pressure 152/71 133/77 (mmHg) O2 Sat by Pulse Oximetry 06/12/19 06/12/19 06/12/19 09:24 09:28 10:20 Temperature Pulse Rate 118 116 160 Respiratory Rate Blood Pressure 122/63 147/65 156/75 (mmHg) O2 Sat by Pulse 94 100 95 Oximetry 06/12/19 06/12/19 06/12/19 10:30 10:35 12:11 Temperature Pulse Rate 104 87 Respiratory 16 Rate Blood Pressure 97/66 119/66 (mmHg) O2 Sat by Pulse 97 Oximetry Oxygen Devices in Use Now: None Appearance: NAD Eyes: No Scleral Icterus, PERRLA Ears/Nose/Mouth/Throat: NL Teeth, Lips, Gums, Clear Oropharnyx Neck: NL Appearance and Movements; NL JVP, Trachea Midline Respiratory: Symmetrical Chest Expansion and Respiratory Effort, Clear to Auscultation Cardiovascular: - - IRIR, tachy Abdominal: NL Sounds; No Tenderness; No Distention, No Hepatosplenomegaly Lymphatic: No Cervical Adenopathy Extremities: No Edema Skin: No Rash or Ulcers Neurological: Alert and Oriented x 3 Result Diagrams: 06/12/19 06:58 06/12/19 06:58 Assess/Plan/Problems-Billing Assessment: 83 yo F h/o chronic back pain on chronic high dose narcotics, h/o severe headaches, depression presenting with severe headache unresponsive to medications in the ED on 2 visits - Patient Problems (1) Afib Comment: new onset appreciate cards consult failed IV metoprolol pushes now on cardizem gtt on 4S inreased xarelto up to 20 mg (decreased to 10 in December from 15mg by oncology) check CTA chest today troponin nl, K and Mag replete NPO midnight for possible cardioversion in AM (Dr. Daivs to make decision if ISABELLE needed - was on 10 xarelto, afib noted here but she does not feel the palpitations) (2) Status migrainosus Comment: appreciate comprehensive assessment from neurology consultation rebound JENNINGS in setting of medications likely as well as underlying chronic pain, depression, and UTI found on hospital stay here. Improved with fluids, steroids, UTI treatment c/w steorids, chronic narcotics anti depressant (3) Depression Comment: wellbutrin, cymbalta (4) Chronic pain Comment: long acting dilaudid changed to short acting standing since we do not have long acting on formulary and cannot accept meds from patients home she has used very little IV breakthrough (5) History of pulmonary embolism Comment: xarelto repeat CTA today in setting of new afib (6) UTI (urinary tract infection) Comment: see culture from previous ED stay on CTX given nausea from migraines (7) DVT prophylaxis Comment: xarelto
--- NOTE | 2019-06-12 16:20 | CONS ---
CARDIOLOGY CONSULTATION: DATE OF CONSULT: 06/12/19 REFERRAL PHYSICIAN: Dr. Deshawn Street. REASON FOR CARDIOLOGY CONSULTATION: New-onset atrial fibrillation. HISTORY OF PRESENT ILLNESS: The patient is an 83-year-old woman who has been admitted with intractable migraine with pain. This morning, while in the hospital, she went into rapid atrial fibrillation. The patient herself denies palpitations or chest pain, but has become very fatigued since returning from the bathroom a few minutes ago. She is extremely hard of hearing and not feeling well at this time. She states that she does not have any headache pain at this time. 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 OUTPATIENT MEDICATIONS: Included: 1. Hydromorphone p.r.n. 2. Cymbalta 55 mg once a day. 3. BuSpar 300 mg once a day. 4. Lisinopril 50 mg once a day. 5. Omeprazole 20 mg once a day. 6. Metoprolol 25 mg once a day. 7. Celecoxib/Celebrex 200 mg p.o. b.i.d. 8. Tamoxifen 20 mg once a day. 9. Xarelto 10 mg once a day, again recently decreased from 15 mg. ALLERGIES TO MEDICATIONS: Listed as HYDROCHLOROTHIAZIDE, MORPHINE, and CODEINE. Family history, social history and review of systems unable to obtain as patient is not feeling well and she is extremely hard of hearing. She is able to deny that she has chest pain, shortness of breath or palpitations at this time. PHYSICAL EXAM: Height 5 feet 2 inches, weight 182 pounds, temp 99.1 degrees Fahrenheit, pulse is 140 to 104, respiratory rate 16, O2 saturation 97%, blood pressure 119/66 to 156/75. On general exam, she is a chronically ill-appearing elderly woman who states she is quite fatigued, in no acute distress at rest other than some mild tachypnea. HEENT: Shows the cranium is normocephalic and atraumatic. She has dry mucosal membranes. Her respiratory rate does increase to about 24 breaths per minute. Neck veins are not distended. There are no carotid bruits. Visible skin warm and perfused. Affect is appropriate. She appears grossly oriented, although limited due to her being significantly hard of hearing. Mild kyphoscoliosis on back exam. Lungs are clear to auscultation. No wheezing. No rales. Cardiac Exam: S1, S2. irregular rate, tachycardic. Soft systolic murmur. There is no rub, no gallop. PMI is nondisplaced. Abdomen is soft, nondistended and appears benign. Extremities: Without significant edema, pulses appear grossly intact. DIAGNOSTIC STUDIES/LAB DATA: Sodium 133, potassium 4.0, chloride 102, bicarbonate 26, BUN 21, creatinine 0.78. White blood cell count 9.9, hematocrit 44, platelet count 198. Creatinine clearance is normal at 73 mL per minute. Telemetry demonstrates rapid atrial fibrillation. 12-lead EKG 06/12/19 at 8:49 a.m., demonstrates atrial fibrillation with rapid rate, nonspecific ST-T wave changes, which may be repolarization abnormality rate related. IMPRESSION: Ms. Hopper is an 83-year-old elderly lady with a history of hypertension and severe pain from her migraines with significant narcotic use, now found to have rapid atrial fibrillation which developed this morning while the patient has been hospitalized. RECOMMENDATIONS: 1. Agree with rule out PE given her history of such as well as use of prothrombotic agents including Celebrex, which I would recommend discontinuing and recent decrease of her Xarelto from 15 to 10 mg once a day. In fact, I would recommend she be on Xarelto 20 mg once a day given her normal creatinine clearance. We will also start her on diltiazem drip. 2. Plan n.p.o. post-midnight for possible cardioversion in the morning. 3. Recommend checking magnesium level. 4. Plan to check echocardiogram in the morning. 5. Other management as per the hospitalist medicine service. I have discussed the case with Dr. Street. I have also discussed with the patient, her son and daughter and they appear to be in agreement with these recommendations. Dear Dr. Steret, many thanks for this kind cardiac consultation opportunity. Please do not hesitate to contact me if you have any questions or concerns regarding the patient's cardiovascular consultative care. [id number]/[facility] #: [id number] GABRIEL
[2019-06-12] MEDS: Cholecalciferol TAB* 1000 UNITS PO SCH (19:19)
[2019-06-12] MEDS: Tamoxifen TAB* 10 MG PO SCH (21:03)
[2019-06-13] MEDS: HYDROmorphone TAB* 4 MG PO SCH ×4 (00:06→17:25)
[2019-06-13] MEDS ORDERED: Diltiazem IV VIAL* 125 MG in NS 0.9% 100 ML* 100 ML IV SCH ×4 (01:50→02:27)
[2019-06-13] MEDS: PROCHLORPERAZINE INJ 5 MG/ML 2 ML VIAL IV PRN (08:01)
[2019-06-13] MEDS: Multivitamins/Minerals TAB PO SCH ×2 (08:30→11:03)
[2019-06-13] MEDS: Lisinopril TAB* 10 MG PO SCH (08:31)
[2019-06-13] MEDS: buPROPion TAB* 100 MG PO SCH (08:31)
[2019-06-13] MEDS: Metoprolol Succinate XL TAB* 25 MG PO SCH (08:31)
[2019-06-13] MEDS: Pantoprazole TAB * 40 MG TAB PO SCH (08:31)
[2019-06-13] MEDS: DULoxetine DR CAP* 20 MG CAP.DR PO SCH (08:31)
[2019-06-13] MEDS: predniSONE TAB* 20 MG PO SCH (08:31)
[2019-06-13] MEDS: Hydrocortisone 1% CREAM* 30 GM TUBE TOPICAL SCH (08:32)
[2019-06-13] MEDS: cefTRIAXone(*) 1 GM in NS 0.9% 50 ML* 50 ML IVPB SCH (08:32)
--- NOTE | 2019-06-13 08:35 | PN ---
Subjective Date of Service: 06/13/19 Interval History: Patient is experiencing intermittent headaches this AM though pain is currently 0/10. Denies chest pain or shortness of breath. Experienced nausea that was relieved with compazine. Denies chest pain, palpitations, shortness of breath or abdominal pain. States she had only a small bowel movement yesterday and is feeling constipated, would appreciated an increased bowel regimen. Tearful during exam, feeling that she is becoming more and more frail. Family History: Unchanged from Admission Social History: Unchanged from Admission Past Medical History: Unchanged from Admission Objective Active Medications: Artificial Tears (Natural Balance Tears Eye Drop) 1 drop BOTH EYES DAILY PRN PRN Reason: DRY EYE Bupropion HCl (Wellbutrin Tab*) 50 mg PO QAM [facility] Last Admin: 06/12/19 10:01 Dose: 50 mg Bupropion HCl (Bupropion Xl*) 300 mg PO QAM [facility] Last Admin: 06/12/19 10:03 Dose: 300 mg Calcium Carbonate (Tums*) 500 mg PO QID PRN PRN Reason: INDIGESTION Carisoprodol (Soma Tab*) 350 mg PO QID PRN PRN Reason: PAIN - MODERATE Cholecalciferol (Vitamin D Tab*) 2,000 units PO QPM@1800 [facility] Last Admin: 06/12/19 19:19 Dose: 2,000 units Duloxetine HCl (Cymbalta Cap*) 80 mg PO DAILY [facility] Last Admin: 06/12/19 10:03 Dose: 80 mg Hydralazine HCl (Apresoline Iv*) 5 mg IV SLOW PU Q6H PRN PRN Reason: Systolic Bp Greater Than:160 Last Admin: 06/11/19 07:47 Dose: 5 mg Hydrocortisone (Hytone Cream 1%*) 1 applic TOPICAL DAILY [facility] Last Admin: 06/12/19 11:15 Dose: Not Given Hydromorphone HCl (Dilaudid Tab*) 8 mg PO Q6H [facility] Last Admin: 06/13/19 05:43 Dose: 8 mg Hydromorphone HCl (Dilaudid Inj1s*) 1 mg IV SLOW PU Q4H PRN PRN Reason: PAIN - SEVERE Last Admin: 06/10/19 20:54 Dose: 1 mg Ceftriaxone Sodium 1 gm/ (Sodium Chloride) 50 mls @ 100 mls/hr IVPB Q24H [facility] Last Admin: 06/12/19 10:04 Dose: 100 mls/hr Diltiazem HCl 125 mg/ Sodium (Chloride) 125 mls @ 5 mls/hr IV Q24H [facility]; Protocol Last Admin: 06/13/19 02:30 Dose: 5 mls/hr Lisinopril (Prinivil Tab*) 20 mg PO DAILY [facility] Last Admin: 06/12/19 10:02 Dose: 20 mg Metoprolol Succinate (Toprol Xl Tab*) 25 mg PO DAILY [facility] Last Admin: 06/12/19 10:02 Dose: 25 mg Multivitamins/Minerals (Theragran/Minerals Tab*) 1 tab PO QAM [facility] Last Admin: 06/12/19 10:01 Dose: 1 tab Pantoprazole Sodium (Protonix Tab*) 40 mg PO QAM [facility] Last Admin: 06/12/19 10:03 Dose: 40 mg Polyethylene Glycol/Electrolytes (Miralax*) 34 gm PO 1400 [facility] Prednisone (Deltasone Tab*) 60 mg PO DAILY [facility] Stop: 06/16/19 23:59 Last Admin: 06/12/19 10:03 Dose: 60 mg Prochlorperazine Edisylate (Compazine Inj*) 10 mg IV Q6H PRN PRN Reason: NAUSEA/VOMITING Last Admin: 06/13/19 08:01 Dose: 10 mg Rivaroxaban (Xarelto(*)) 20 mg PO QPM [facility] Tamoxifen Citrate (Nolvadex*) 20 mg PO BEDTIME [facility] Last Admin: 06/12/19 21:03 Dose: 20 mg Vital Signs - 8 hr 06/13/19 06/13/19 06/13/19 00:39 01:53 01:58 Temperature Pulse Rate Respiratory Rate Blood Pressure 141/75 126/67 151/81 (mmHg) O2 Sat by Pulse Oximetry 06/13/19 06/13/19 06/13/19 02:04 02:18 02:33 Temperature Pulse Rate Respiratory Rate Blood Pressure 147/63 142/76 160/82 (mmHg) O2 Sat by Pulse Oximetry 06/13/19 06/13/19 06/13/19 02:36 02:38 02:41 Temperature Pulse Rate Respiratory 18 Rate Blood Pressure 160/73 155/110 (mmHg) O2 Sat by Pulse Oximetry 06/13/19 06/13/19 06/13/19 02:53 03:08 03:23 Temperature Pulse Rate Respiratory Rate Blood Pressure 149/69 129/87 141/109 (mmHg) O2 Sat by Pulse Oximetry 06/13/19 06/13/19 06/13/19 03:38 03:43 03:56 Temperature 98.2 F Pulse Rate Respiratory Rate Blood Pressure 133/63 125/77 (mmHg) O2 Sat by Pulse 98 Oximetry 06/13/19 06/13/19 06/13/19 04:08 04:38 05:08 Temperature Pulse Rate Respiratory Rate Blood Pressure 135/77 140/74 161/74 (mmHg) O2 Sat by Pulse Oximetry 06/13/19 06/13/19 06/13/19 05:38 05:42 05:43 Temperature Pulse Rate Respiratory 16 Rate Blood Pressure 153/79 159/88 (mmHg) O2 Sat by Pulse Oximetry 06/13/19 06/13/19 06/13/19 06:38 07:15 07:38 Temperature 98.3 F Pulse Rate 95 Respiratory 16 Rate Blood Pressure 139/84 177/93 (mmHg) O2 Sat by Pulse 98 Oximetry Oxygen Devices in Use Now: None Appearance: Pale, no acute distress. Eyes: No Scleral Icterus, PERRLA Ears/Nose/Mouth/Throat: NL Teeth, Lips, Gums, Clear Oropharnyx, Mucous Membranes Moist Neck: NL Appearance and Movements; NL JVP, Trachea Midline, - - Bilateral carotids without bruit. Respiratory: Symmetrical Chest Expansion and Respiratory Effort, Clear to Auscultation Cardiovascular: NL Sounds; No Murmurs; No JVD, No Edema, - - Heart rate irregular Abdominal: NL Sounds; No Tenderness; No Distention Lymphatic: No Cervical Adenopathy Extremities: No Edema, No Clubbing, Cyanosis Skin: No Rash or Ulcers, No Nodules or Sclerosis Neurological: Alert and Oriented x 3, NL Sensation Lines/Tubes/Other Access: Clean, Dry and Intact Peripheral IV Result Diagrams: 06/12/19 06:58 06/12/19 06:58 Additional Lab and Data: Laboratory Tests 06/12/19 06:58 Sodium 133 L BUN/Creatinine Ratio 26.9 H Glucose 115 H Assess/Plan/Problems-Billing Assessment: 83 yo F h/o chronic back pain on chronic high dose narcotics, h/o severe headaches, depression presenting with severe headache unresponsive to medications in the ED on 2 visits. Headaches are now under control though has developed new onset afib during stay with plan for cardioversion later today. - Patient Problems (1) Atrial fibrillation Current Visit: Yes Status: Acute Priority: High Onset Date: ~06/12/19 Code(s): I48.91 - UNSPECIFIED ATRIAL FIBRILLATION SNOMED Code(s): 67895416 Comment: Developed fatigue an malaise on the Am of 06/12/19, EKG performed revealing new onset afib. Dr. Corrigan consulted. On diltiazem drip with runs of SVT this AM. Underwent cardioversion today, converted back to sinus rhythm. Diltiazem drip discontinued afterwards. Continue PO metoprolol and telemetry monitoring. (2) Status migrainosus Current Visit: Yes Status: Acute Code(s): G43.901 - MIGRAINE, UNSP, NOT INTRACTABLE, WITH STATUS MIGRAINOSUS SNOMED Code(s): 582096862 Comment: Appreciate comprehensive assessment from neurology consultation rebound JENNINGS in setting of medications likely as well as underlying chronic pain, depression, and UTI found on hospital stay here. Improved with fluids, steroids, UTI treatment c/w steorids, chronic narcotics anti depressant (3) Depression Current Visit: Yes Status: Chronic Code(s): F32.9 - MAJOR DEPRESSIVE DISORDER, SINGLE EPISODE, UNSPECIFIED SNOMED Code(s): 06239435 Comment: wellbutrin, cymbalta (4) Chronic pain Current Visit: Yes Status: Acute Code(s): G89.29 - OTHER CHRONIC PAIN SNOMED Code(s): 40861436 Comment: No IV dilaudid has been required. Pain being controlled with short acting, standing oral dilaudid. (5) History of pulmonary embolism Current Visit: Yes Status: Acute Code(s): Z86.711 - PERSONAL HISTORY OF PULMONARY EMBOLISM SNOMED Code(s): 997059432 Comment: tremayne Awaiting CTA results in the setting of new Afib. (6) UTI (urinary tract infection) Current Visit: Yes Status: Acute Comment: Continue ceftriaxone IV. (7) DVT prophylaxis Current Visit: Yes Status: Acute Code(s): Z29.9 - ENCOUNTER FOR PROPHYLACTIC MEASURES, UNSPECIFIED SNOMED Code(s): 568655443 Comment: tremayne (8) Full code status Current Visit: Yes Status: Acute Code(s): Z78.9 - OTHER SPECIFIED HEALTH STATUS SNOMED Code(s): 393839002 Status and Disposition: Disposition: Inpatient Condition: Guarded Counseling and/or Coordination of Care Minutes: 50 Attending: Amanda Perera
[2019-06-13] MEDS ORDERED: Rivaroxaban TAB(*) 20 MG TAB PO SCH ×2 (09:00→18:00)
[2019-06-13] MEDS ORDERED: Bisacodyl SUPP* 10 MG SUPP PR PRN (09:12)
[2019-06-13] MEDS: BuPROPion XL* 300 MG TAB.XL PO SCH (11:12)
[2019-06-13] MEDS ORDERED: fentaNYL* 50 MCG/ML 2 ML VIAL (100 MCG VIAL) ONE (11:37)
[2019-06-13] MEDS ORDERED: Midazolam* 1 MG/ML 5 ML VIAL (5 MG) ONE (11:37)
[2019-06-13] MEDS ORDERED: Naloxone* 0.4 MG/ML 1 ML VIAL ONE (11:37)
[2019-06-13] MEDS ORDERED: Flumazenil* 0.1 MG/ML 5 ML MDV ONE (11:37)
[2019-06-13] MEDS ORDERED: diPHENhydraMINE IV* 50 MG/ML 1 ml VIAL (BENADRYL) ONE (11:51)
--- NOTE | 2019-06-13 12:10 | PROCNOTE ---
Cardiology Procedure Note External electrical cardioversion Asked by Dr. Davis to perform cardioversion Risks, benefits and alternatives discussed and patient wished to proceed 4 mg IV versed, 50 mcg IV fentanyl used for conscious sedation Patient cardioverted from atrial fibrillation to sinus rhythm with 120J external electrical cardioversion x 1 IV diltiazem gtt discontinued
[2019-06-13] MEDS ORDERED: Perflutren Lipid Microsphere* 3 ML VIAL ONE (12:24)
[2019-06-13] MEDS ORDERED: Polyethylene Glycol 3350* 17 GM PACKET PO SCH (14:00)
--- NOTE | 2019-06-13 15:36 | ECHO ---
*[facility]* [place] [address] Fax #: [phone] Transthoracic Echocardiogram Patient: Arlyn Hopper : 1935 Study Date: 06/13/2019 Age: 83 Gender: F HR: 61 bpm Height: 62 in /157.5 cm BSA: 1.84 m^2 Weight: 181.6 lb /82.6 kg BMI: 33.3 kg/m^2 *Support Worker: * Claire Yoon [facility] *Referring Physician: * Deshawn Street *Reading Physician: * Jj Corrigan MD Indications: Atrial Fibrillation. History: Atrial fibrillation. Rheumatic fever. Risk factors: Hypertension. Conclusions Summary: - Left ventricle: The cavity size is normal. Wall thickness is mildly increased. Systolic function is vigorous. The estimated ejection fraction is 65-70%. Wall motion is normal; there are no regional wall motion abnormalities. - Left atrium: The atrium is moderately dilated. - Functionally benign heart valves. - Since the prior echocardiogram completed 06/20/13, there is no significant change. Study data: Transthoracic echocardiogram. Procedure: Transthoracic echocardiography was performed. Image quality was adequate. Intravenous Definity , 2 mlswas administered. Complete 2D, spectral Doppler, and color flow Doppler. Location: Procedure room. Patient status: Inpatient. Patient room number: 434. Rhythm: Normal sinus rhythm. Findings Left ventricle: The cavity size is normal. Wall thickness is mildly increased. Systolic function is vigorous. The estimated ejection fraction is 65-70%. Wall motion is normal; there are no regional wall motion abnormalities. The outflow tract shows moderate hypertrophy and a velocity flow profile with a normal, non-obstructive pattern. There is no consistent Doppler evidence of clinically significant diastolic dysfunction. Patient was sedated and unable to valsalva. Right ventricle: The cavity size is normal. Systolic function is normal. Left atrium: The atrium is moderately dilated. Right atrium: The atrium is normal in size. Mitral valve: The leaflets are normal thickness. There is no significant regurgitation. Aortic valve: The valve is trileaflet. The leaflets are normal thickness. There is no evidence of stenosis. There is no significant regurgitation. Tricuspid valve: The leaflets are normal thickness. There is trace to mild regurgitation. Pulmonic valve: The leaflets are normal thickness. There is no evidence of stenosis. There is no significant regurgitation. Aorta: The aortic root appears normal. The aortic arch appears normal. Pericardium: There is no significant pericardial effusion. Pulmonary arteries: The main pulmonary artery is normal-sized. Systolic pressure is within the normal range. Systemic veins: Inferior vena cava: Not well visualized. Measurements Left ventricle Value Ref Aortic valve Value Ref LUIS ALBERTO, LAX 4.1 cm 3.8 - 5.2 Liz diam, ED 2.1 cm ---- ESD, LAX 2.8 cm 2.2 - 3.5 Peak v, S 1.05 m/sec ---- FS, LAX 31 % 27 - 45 VTI, S 18.6 cm ---- PW, ED, LAX (H) 1.1 cm 0.6 - 0.9 Mean grad, S 2.0 mm Hg ---- EF 60 % 54 - 74 Peak grad, S 4.0 mm Hg ---- E', lat liz, TDI (L) 7.3 cm/sec >=10.0 E/e', lat liz, 12 Mitral valve Value Ref TDI Peak E 0.87 m/sec ---- E', med liz, TDI (L) 4.8 cm/sec >=7.0 Peak A 0.62 m/sec ---- E/e', med liz, 18 Decel time 182 ms ---- TDI Peak grad, D 3.0 mm Hg ---- E', avg, TDI 6.1 cm/sec Peak E/A ratio 1.4 ---- E/e', avg, TDI 14 <=14 Pulmonic valve Value Ref LVOT Value Ref Peak v, S 0.81 m/sec ---- Peak chantale, S 0.66 m/sec Peak grad, S 3.0 mm Hg ---- Mean grad, S 1 mm Hg Aortic root Value Ref Ventricular septum Value Ref Root diam 3.3 cm <4.0 IVS, ED (H) 1.7 cm 0.6 - 0.9 Ascending aorta Value Ref Right ventricle Value Ref AAo AP diam, S 2.9 cm ---- LUIS ALBERTO, LAX 2.7 cm LUIS ALBERTO minor ax, A4C 3.1 cm 1.9 - 3.5 Aortic arch Value Ref mid Arch diam 2.6 cm ---- Left atrium Value Ref Decending aorta Value Ref AP dim, ES (H) 4.40 cm 2.70 - Jalil peak chantale 0.39 m/sec ---- 3.80 ML dim, A4C 4.6 cm SI dim, A4C 5.2 cm Vol/bsa, ES, A/L (H) 46 ml/m^2 16 - 34 Right atrium Value Ref SI dim, ES 4.1 cm 3.4 - 5.3 ML dim, ES, A4C 3.7 cm 2.6 - 4.4 Estimated RAP 8 mm Hg Legend: (L) and (H) janet values outside specified reference range. Prepared and electronically signed by Jj Corrigan MD 06/13/2019 15:33
[2019-06-13] MEDS: Cholecalciferol TAB* 1000 UNITS PO SCH (17:24)
[2019-06-13] MEDS: Tamoxifen TAB* 10 MG PO SCH (20:41)
[2019-06-14] MEDS: HYDROmorphone TAB* 4 MG PO SCH ×3 (00:03→11:58)
[2019-06-14] MEDS: BuPROPion XL* 300 MG TAB.XL PO SCH (08:36)
[2019-06-14] MEDS: Lisinopril TAB* 10 MG PO SCH (08:36)
[2019-06-14] MEDS: predniSONE TAB* 20 MG PO SCH (08:36)
[2019-06-14] MEDS: Metoprolol Succinate XL TAB* 25 MG PO SCH (08:36)
[2019-06-14] MEDS: Pantoprazole TAB * 40 MG TAB PO SCH (08:36)
[2019-06-14] MEDS: DULoxetine DR CAP* 20 MG CAP.DR PO SCH (08:36)
[2019-06-14] MEDS: Multivitamins/Minerals TAB PO SCH (08:36)
[2019-06-14] MEDS: buPROPion TAB* 100 MG PO SCH (08:37)
[2019-06-14] MEDS: cefTRIAXone(*) 1 GM in NS 0.9% 50 ML* 50 ML IVPB SCH (08:37)
[2019-06-14] MEDS: Hydrocortisone 1% CREAM* 30 GM TUBE TOPICAL SCH (08:53)
[2019-06-14 10:10] VITALS: BP 144/72
--- NOTE | 2019-06-14 18:26 | DS ---
AMENDED REPORT NOW INCLUDES DESIGNATED COSIGNER - ESIGNED BEFORE ADJUSTMENTS DISCHARGE SUMMARY: DATE OF ADMISSION: 06/09/19 DATE OF DISCHARGE: 06/14/19 ATTENDING PHYSICIAN: Dr. Singer.* (DICTATED BY AUDREY MICHAEL NP) PRIMARY CARE PHYSICIAN: Pia Murray MD. CONSULTING PHYSICIAN: Dr. Daivs. PRIMARY DIAGNOSES: Include: 1. Urinary tract infection 2. Intractable migraines. 3. New-onset atrial fibrillation. SECONDARY DIAGNOSES: 1. Depression. 2. Hypertension. 3. Lumbar stenosis. PROCEDURES: On 06/13/19, underwent cardioversion. STUDIES: On 06/13/19, EKG showed sinus rhythm with PACs. On 06/12/19, transthoracic echocardiogram with ejection fraction 65% to 70%, left atrium moderately dilated, functionally benign heart valve. Pertinent lab data is none. HISTORY OF PRESENT ILLNESS AND HOSPITAL COURSE: This is an 83-year-old female with a past medical history of pulmonary embolism and DVT on Xarelto with history of breast cancer, status post lumpectomy and tamoxifen therapy, and history of migrainous headaches with previous ER visits for headaches requiring Dilaudid. Came to the ER on 06/09/19 with intractable headache, responded well over the course of the stay to Solu-Medrol and magnesium and IV Dilaudid. While here, the patient developed new onset AFib, underwent cardioversion on 06/23 and converted into sinus rhythm. While here, the patient was also diagnosed with a UTI, so received IV ceftriaxone, is clinically improving, will be discharged home on cefdinir to finish course of antibiotics. Today the patient denies any chest pain, shortness of breath, palpitations; states she feels well. Continues to be in sinus rhythm with no urinary difficulties and denies any headaches. Will be discharged to home. DISCHARGE PLAN: 1. Atrial fibrillation. The patient to continue on metoprolol and to follow up with primary care physician within the next few days, on Xarelto for anticoagulation. 2. Status migrainosus, rebound headache in the setting of medications, likely as well as due to underlying chronic pain, depression and urinary tract infection, now improved. Continue with normal regimen at home including sumatriptan, Tylenol, and Dilaudid. 4. Depression. Continue on Wellbutrin and Cymbalta. 5. Chronic pain. Continue with p.o. Dilaudid and Tylenol. 6. History of pulmonary embolism, continue on Xarelto. 7. Urinary tract infection. The patient received 4 days' worth of IV ceftriaxone in the hospital. Will continue on 3 more days of p.o. cefdinir. Encourage extra fluids. 8. Hypertension. Please continue on, again, metoprolol, lisinopril. 9. Gastroesophageal reflux disease. Continue on Prilosec and calcium carbonate. MEDICATIONS: New prescriptions: 1. Bupropion XL 300 mg p.o. q.a.m. 2. Cefdinir 300 mg p.o. b.i.d. x3 days. 3. Lisinopril 20 mg p.o. daily. 4. Xarelto 20 mg p.o. daily. Continue home medications, which include: 1. Duloxetine 80 mg p.o. daily. 2. Hydromorphone ER 32 mg p.o. daily. 3. Hydromorphone immediate release 2 to 4 mg p.o. q.6 hours with max daily dose of 8. 4. Refresh Tears 1 drop both eyes daily as needed. 5. Calcium carbonate 600 mg p.o. 4 times a day p.r.n. 6. Tylenol 650 mg p.o. q.6 hours p.r.n. 7. Hydrocortisone 2.5% topically daily. 8. Vitamin D 2000 units p.o. q.p.m. 9. Carisoprodol or soma 350 mg p.o. 4 times a day p.r.n. 10. Prilosec 20 mg p.o. q.a.m. 11. Multivitamin with mineral 1 tab p.o. q.a.m. 12. Metoprolol succinate 25 mg p.o. daily. 13. Tamoxifen 20 mg p.o. bedtime. 14. Polyethylene glycol 17 g p.o. daily. 15. Xarelto 20 mg p.o. q.p.m. 16. Lisinopril 20 mg p.o. daily. 17. Cefdinir 300 mg p.o. b.i.d. 18. Bupropion 300 mg q.a.m. Please stop the medication of bupropion 50 mg p.o. every day. CONDITION UPON DISCHARGE: Stable. DISPOSITION: To home. TIME SPENT: 45 minutes. AUDREY MICHAEL NP [id number]/[facility] #: [id number] GABRIEL
== END 2019-06-14 13:30 | disposition home or self-care (01) | DRG 103 ==
LOC: ED 13:25 → MED 06-10 02:51 → MEDTELE 06-12 10:56
PROVIDERS: ADMIT Internal Medicine; ATTEND Internal Medicine
PROC: 5A2204Z Restoration of Cardiac Rhythm, Single (ICD-10-PCS; principal; 2019-06-13 12:30)
DX: G43.111 Migraine with aura, intractable, with status migrainosus (principal); N39.0 Urinary tract infection, site not specified; I48.91 Unspecified atrial fibrillation; F32.9 Major depressive disorder, single episode, unspecified; I10 Essential (primary) hypertension; G89.4 Chronic pain syndrome; K21.9 Gastro-esophageal reflux disease without esophagitis; Z96.643 Presence of artificial hip joint, bilateral; M19.90 Unspecified osteoarthritis, unspecified site; F41.9 Anxiety disorder, unspecified; Z96.612 Presence of left artificial shoulder joint; K59.00 Constipation, unspecified; M48.061 Spinal stenosis, lumbar region without neurogenic claudication; Z86.711 Personal history of pulmonary embolism; Z86.718 Personal history of other venous thrombosis and embolism; Z85.3 Personal history of malignant neoplasm of breast; Z92.21 Personal history of antineoplastic chemotherapy; Z79.01 Long term (current) use of anticoagulants; Z79.891 Long term (current) use of opiate analgesic; Z79.52 Long term (current) use of systemic steroids; Z98.41 Cataract extraction status, right eye; Z98.42 Cataract extraction status, left eye; Z88.5 Allergy status to narcotic agent; Z88.8 Allergy status to other drugs, medicaments and biological substances; Z87.891 Personal history of nicotine dependence; Z80.52 Family history of malignant neoplasm of bladder
CPT/HCPCS: 36415; 70450; 70553; 71275; 80048; 80053; 81003; 81015; 83605; 83735; 84484; 85025; 87077; 87086; 87186; 92960; 93005; 93306; 96361; 96374; 96375; 96376; 99156; 99283; 99284; A9270-GY; A9579; C8929; J0360; J0696; J0780; J1170; J1200; J1885; J2250; J2310; J2405; J2765; J2930; J3010; J3475; J3490; J7512; Q9967

== ENCOUNTER 2020-06-18 05:45 | Inpatient (IN) ==
[2020-06-18] MEDS ORDERED: Buffered Lidocaine 1% SYRIN 1 ml INTRADERM ONE (06:00)
[2020-06-18] MEDS ORDERED: Famotidine IV 10 MG/ML 2 ml VIAL (20 mg) IV ONE (06:00)
[2020-06-18] MEDS ORDERED: Lactated Ringers 1000 ml BAG 1,000 ML IV SCH (06:00)
[2020-06-18] MEDS ORDERED: ceFAZolin 2 GM PREMIX 2 GM/50 ML BAG ONE (06:23)
[2020-06-18] MEDS ORDERED: Famotidine IV 10 MG/ML 2 ml VIAL (20 mg) ONE (06:23)
[2020-06-18] MEDS ORDERED: fentaNYL 100 mcg/2 ml 50 MCG/ML VIAL ONE (06:49)
[2020-06-18] MEDS ORDERED: Rocuronium 50 mg VIAL 10 mg/ml 5 ml VIAL (50 mg) ONE ×2 (06:50→08:37)
[2020-06-18] MEDS ORDERED: Ondansetron 4 mg VIAL 2 MG/ML 2 ml VIAL ONE (06:50)
[2020-06-18] MEDS ORDERED: Lidocaine 2% PF 5 ML VIAL ONE (06:50)
[2020-06-18] MEDS ORDERED: Propofol 10 MG/ML 20 ML BTL ONE (06:50)
[2020-06-18] MEDS ORDERED: Midazolam 5 mg/5 ml VIAL 1 mg/ml 5 ml VIAL (5 mg) ONE (07:27)
[2020-06-18 07:32] LABS: INR 1.03 (0.82-1.09)
[2020-06-18] MEDS ORDERED: Ropivacaine (OR use only) 2 MG/ML 10 ML ONE (07:32)
[2020-06-18] MEDS ORDERED: Lidocaine 1% MPF 5 ML VIAL ONE (07:32)
[2020-06-18] MEDS ORDERED: Vancomycin 1,000 MG VIAL ONE ×2 (07:33→07:34)
[2020-06-18] MEDS ORDERED: ROPIVACAINE 5 MG/ML 30 ML BTL (0.5%) ONE (07:33)
[2020-06-18] MEDS ORDERED: HYDROmorphone 1 MG/1 ML SYRINGE ONE (08:27)
[2020-06-18] MEDS ORDERED: EPHEDrine (Pressors) 50 MG/ML VIAL ONE (08:28)
[2020-06-18] MEDS ORDERED: DiMENhydriNATE IV 50 mg/ml 1 ml VIAL IV PUSH PRN (08:51)
[2020-06-18] MEDS ORDERED: HYDROmorphone 1 MG/1 ML SYRINGE IV PRN (08:51)
[2020-06-18] MEDS ORDERED: Naloxone 0.4 mg VIAL 0.4 mg/ml 1 ml VIAL IV PRN (08:51)
[2020-06-18] MEDS ORDERED: Ondansetron ODT 4 mg TAB 4 MG TAB PO PRN (12:14)
[2020-06-18] MEDS ORDERED: Lactulose 30 ml UDC PO PRN (12:14)
[2020-06-18] MEDS ORDERED: Magnesium Hydroxide LIQ 30 ML UDC PO PRN (12:14)
[2020-06-18] MEDS ORDERED: diPHENhydraMINE IV 50 MG/ML 1 ml VIAL (BENADRYL) IV PRN (12:14)
[2020-06-18] MEDS ORDERED: diPHENhydraMINE 25 mg TAB PO PRN (12:14)
[2020-06-18] MEDS ORDERED: Ondansetron 4 mg VIAL 2 MG/ML 2 ml VIAL IV PRN (12:14)
[2020-06-18] MEDS: Lactated Ringers 1000 ml BAG 1,000 ML IV SCH (13:35)
[2020-06-18] MEDS ORDERED: Dextran 70/Hypromellose Tears Eye Drops 15 ml BTL (for Artificials Tears) BOTH EYES PRN (14:52)
[2020-06-18] MEDS ORDERED: CMCS: Riboflavin (B2) 100 mg TAB(NF) PO SCH (15:00)
[2020-06-18] MEDS ORDERED: Polyethylene Glycol 3350 17 GM PACKET PO SCH (15:00)
[2020-06-18] MEDS: ceFAZolin 1 GM ADVAN 1 GM in NS 0.9% 50 ML 50 ML IVPB SCH (15:33)
[2020-06-18] MEDS ORDERED: RIBOFLAVIN 100 MG PO SCH (15:46)
[2020-06-18] MEDS: Sulfamethox/Trimethoprim DS TAB 800/160 mg PO SCH (21:28)
[2020-06-18] MEDS: Magnesium Hydroxide LIQ 30 ML UDC PO SCH (21:28)
[2020-06-19] MEDS: ceFAZolin 1 GM ADVAN 1 GM in NS 0.9% 50 ML 50 ML IVPB SCH ×2 (00:38→08:03)
[2020-06-19] MEDS: Lactated Ringers 1000 ml BAG 1,000 ML IV SCH (03:19)
[2020-06-19 06:27] LABS: Hematocrit 31 % (35-47); Hemoglobin 10.8 g/dL (12.0-16.0); Mean Platelet Volume 7.5 fL (7.4-10.4); Platelet Count 188 10^3/uL (150-450)
[2020-06-19 06:43] LABS: Calcium 9.3 mg/dL (8.6-10.3); EGFR African American 63.8 (>60); EGFR Non-African American 52.7 (>60); Potassium 4.4 mmol/L (3.5-5.0)
[2020-06-19] MEDS: Magnesium Hydroxide LIQ 30 ML UDC PO SCH (08:03)
[2020-06-19] MEDS: Sulfamethox/Trimethoprim DS TAB 800/160 mg PO SCH (08:04)
[2020-06-19] MEDS ORDERED: Cholecalciferol (VIT D3) 1,000 unit TAB PO SCH (09:00)
[2020-06-19] MEDS ORDERED: DULoxetine DR 60 mg CAP PO SCH (09:00)
[2020-06-19] MEDS ORDERED: Vitamin THERAPEUTIC TAB PO SCH (09:00)
[2020-06-19] MEDS ORDERED: DULoxetine DR 20 mg CAP PO SCH (09:00)
[2020-06-19 11:57] VITALS: BP 103/43
== END 2020-06-19 14:46 | disposition home health service (06) | DRG 483 ==
LOC: AA 05:45 → SSU 12:15
PROVIDERS: ADMIT Orthopaedic Surgery; ATTEND Orthopaedic Surgery